=== PATIENT | female | born 1970 | race African-American/Black ===

== ENCOUNTER → 2016-09-02 | Outpatient (CLI) | payer OTHER ==
--- NOTE | 2016-09-03 08:33 | MM ---
Reason for exam: screening (asymptomatic). Last mammogram was performed 1 year and 1 month ago. History: Family history of breast cancer in mother at age 40. Physical Findings: A clinical breast exam by your physician is recommended on an annual basis and results should be correlated with mammographic findings. MG Screening Mammo w CAD Bilateral CC and MLO view(s) were taken. Prior study comparison: August 15, 2015, bilateral MG screening mammo w CAD. July 13, 2014, bilateral MG screening mammo w CAD. July 12, 2013, bilateral digital screening mammo w/CAD. The breast tissue is heterogeneously dense. This may lower the sensitivity of mammography. Finding: There are typically benign calcifications in the left breast. There is no discrete abnormality. ASSESSMENT: Benign, BI-RAD 2 RECOMMENDATION: Routine screening mammogram of both breasts in 1 year.
== END | disposition home or self-care (01) ==
LOC: RADMAMWWP 14:27
PROVIDERS: ATTEND Family Medicine
DX: Z12.31 Encounter for screening mammogram for malignant neoplasm of breast (principal)

== ENCOUNTER → 2016-09-02 | Outpatient (CLI) | payer OTHER ==
--- NOTE | 2016-09-02 16:05 | US ---
EXAMINATION TYPE: US thyroid st tissue head/neck DATE OF EXAM: 09/02/2016 COMPARISON: Thyroid ultrasound July 24, 2015 CLINICAL HISTORY: E04.1 Thyroid Nodule. Follow up exam GLAND SIZE: Right Lobe: 5.4 x 1.7 x 1.7 cm Overall Parenchyma: homogenous Left Lobe: 5.5 x 1.8 x 2.4 cm Overall Parenchyma: heterogeneous Isthmus Thickness: 0.7 cm NODULES RIGHT: # of nodules measured on right: 0 LEFT: # of nodules measured on left: 3 1. 1.8 X 1.9 x 1.9 cm isoechoic solid nodule at the mid pole with poorly defined margins. This nod ule is wider than tall and shows intranodular vascularity. Prior size: 1.6 x 1.3 x 1.6cm 2. 1.1 X 0.8 x 0.7 cm hypoechoic mixed nodule at the lower pole with well-defined margins. This nod ule is wider than tall and shows no intranodular vascularity. Prior size: 1.0 x 0.8 x 1.1cm 3. 0.8 X 0.7 x 0.8 cm hypoechoic cystic nodule at the lower pole with well-defined margins. This no dule is taller than wide and shows no intranodular vascularity. Prior size: 1.0 x 0.8 x 0.8cm ISTHMUS: # of nodules measured in the isthmus: 1 1. 1.5 X 1.2 x 1.0 cm hypoechoic solid nodule at left isthmus. This nodule is wider than tall and shows intranodular vascularity. Prior size: 1.6 x 0.8 x 1.2cm Bilateral neck scanned, no evidence of lymphadenopathy. Thyroid gland is slightly prominent in size and fairly homogeneous in appearance. Scattered nodules l eft thyroid lobe and isthmus are felt stable. No new nodules are clearly seen. IMPRESSION: Overall stable findings, stable slightly enlarged thyroid gland with left-sided nodules and dominant left-sided isthmus nodule. No new greater than 1 cm solid or cystic nodules are seen.
== END | disposition home or self-care (01) ==
LOC: RADUSWWP 14:23
PROVIDERS: ATTEND Otolaryngology
DX: E04.1 Nontoxic single thyroid nodule (principal)
CPT/HCPCS: 76536

== ENCOUNTER → 2016-09-22 | Outpatient (CLI) | payer OTHER ==
[2016-09-22 12:04] LABS: Basophils % (A) 0 %; CH 27.4; CHCM 31.1; Eosinophils # (A) 0.1 k/uL (0-0.7); Eosinophils % (A) 2 %; HCT 42.7 % (34.0-46.0); HGB 13.3 gm/dL (11.4-16.0); Hypochromasia Slight; Luc # (Auto) 0.24; Luc % (Auto) 3; Lymphocytes # (A) 1.9 k/uL (1.0-4.8); Lymphocytes % (A) 25 %; MCH 27.5 pg (25.0-35.0); MCHC 31.1 g/dL (31.0-37.0); MCV 88.4 fL (80.0-100.0); Mean Platelet Volume 7.4; Monocytes # (A) 0.4 k/uL (0-1.0); Monocytes % (A) 5 %; Neutrophils # (A) 4.9 k/uL (1.3-7.7); Neutrophils % (A) 64 %; RBC 4.83 m/uL (3.80-5.40); RDW 13.4 % (11.5-15.5); WBC 7.6 k/uL (3.8-10.6); WBC (Perox) 7.69
[2016-09-22 12:19] LABS: Anion Gap 9 mmol/L; Blood Urea Nitrogen 11 mg/dL (7-17); Calcium 9.7 mg/dL (8.4-10.2); Carbon Dioxide 20 mmol/L (22-30); Chloride 110 mmol/L (98-107); Glucose 130 mg/dL (74-99); Non-African American GFR(MDRD) >60 (>60 ml/min/1.73 sqM); Potassium 4.6 mmol/L (3.5-5.1); Sodium 139 mmol/L (137-145)
== END | disposition home or self-care (01) ==
LOC: LABWHC1 11:27
PROVIDERS: ATTEND Urology
DX: Z01.812 Encounter for preprocedural laboratory examination (principal); E11.9 Type 2 diabetes mellitus without complications; R35.0 Frequency of micturition; N39.3 Stress incontinence (female) (male)
CPT/HCPCS: 80048; 85025; 87086

== ENCOUNTER 2016-09-30 06:03 | Observation (INO) | payer OTHER ==
[2016-09-23 09:54] VITALS: BMI 44.4
--- NOTE | 2016-09-29 16:26 | HP ---
DATE OF ADMISSION: REASON FOR ADMISSION: Surgery tomorrow at [facility]. This is a 46-year-old female 1, para one who presents with a complaint of urinary issues. The patient was referred from Dr. Foster for evaluation regarding cystocele. Upon evaluation, the patient was noted to have a slightly enlarged fibroid uterus, normal ovaries bilaterally. She did indeed have a clinical cystocele. Discussion ensued regarding the value of vaginal hysterectomy at the time of cystocele repair. The patient has minimal amount of uterine prolapse. Ultrasound has recently been performed to evaluate uterine dimensions, they are at 7.8 x 5.55 x 3.95 cm, with normal ovaries noted sonographically. There are small uterine fibroids noted, largest measuring 9 mm. After thorough consultation of risks and benefits, patient is electing to proceed with vaginal hysterectomy at the time of cystocele repair and transvaginal tape. Review of systems is otherwise negative. PAST MEDICAL HISTORY: Significant for carpal tunnel syndrome. PAST SURGICAL HISTORY: Cholecystectomy 1999, excision of benign lipoma 2012. CURRENT MEDICATIONS: 1. Omeprazole 20 mg pills once daily. 2. Vicodin 5/300 as needed for pain. 3. Ibuprofen 800 mg oral tablets as needed for pain. ALLERGIES INCLUDE BENADRYL AND TUSSIONEX. FAMILY HISTORY: Significant for her mother having breast cancer, a maternal aunt with heart disease. Reproductive history is significant for one vaginal delivery of a 7-pound, 2-ounce, female infant in 1998. SOCIAL HISTORY: Caffeine use daily, patient has never been a tobacco smoker, she is single. She denies alcohol or drug use. On exam, this is a pleasant female, 5 feet ( ) inches, 267 pounds, BMI 44, blood pressure 124/84. General physical exam is negative. HEENT exam reveals no thyromegaly, good dentition, good range of motion in the neck. No obvious cervical lymphadenopathy. Breasts are bilaterally pendulous, equal and bilaterally symmetric, no axillary adenopathy, skin lesions, lymphadenopathy, or discernible lesions or masses. ABDOMEN: Moderately obese, no hepatosplenomegaly. There is no CVA tenderness. The extremities reveal good range of motion, good peripheral pulses. EXTERNAL GENITALIA: Well estrogenized. Cervix is multiparous with a small nabothian cyst noted. The uterus is anteverted, anteflexed, there is minimal to moderate amount of uterine prolapse, uterus is slightly bulky and anterior to position. Adnexa are negative bilaterally. Rectal exam reveals Fit, negative stool. There is a grade 2 to 3 cystocele noted on examination, no obvious rectocele. IMPRESSION: Increasingly symptomatic stress urinary incontinence, accompanied by a grade 2 to 3 cystocele and minimal to moderate uterine prolapse. Patient has a small fibroid uterus, and after thorough consultation, would like vaginal hysterectomy at the same time as cystocele repair and transvaginal tape. PLAN: We will therefore proceed with vaginal hysterectomy, repair of cystocele, and tape placement per Dr. Foster. The patient has been advised thoroughly of the risks, benefits, and alternatives of this plan. We have reviewed the risks of surgery to include, but not be exclusive of bleeding, infection, perforation or damage to bowel, bladder, ureters, or indeed any pelvic or abdominal organs. ACOG pamphlet on this procedure has been given to the patient and thoroughly reviewed. I believe she understands these risks and benefits with no further question. Again, we have reviewed the risks of anesthesia to include aspiration, nerve damage or even .
[~2016-09-30 06:03] MED LIST: DEXAMETHASONE SOD PHOSPHATE 10 MG/ML 1 ML VIAL IV ONE; HYDROmorphone 1 MG/ML 1 ML SYRINGE IVP PRN; MIDAZOLAM 2 MG/2 ML VIAL IV PRN; ONDANSETRON 4 MG/2 ML VIAL IVP ONE; SCOPOLAMINE 1.5MG/72HR PATCH TRANSDERM ONE; ceFAZolin 2 GM in SODIUM CHLORIDE 0.9% 100 ML IVPB ONE
[2016-09-30 06:31] LABS: Glucose,Whole Blood 115 mg/dL (75-99)
[2016-09-30] MEDS ORDERED: LIDOCAINE 1% 20 ML VIAL (10MG/ML) FOR IV START INTRADERMA ONE ×2 (06:35)
[2016-09-30] MEDS: LACTATED RINGERS 1,000 ML IV SCH ×2 (06:35→21:26)
[2016-09-30] MEDS ORDERED: GENTAMICIN 120 MG in SODIUM CHLORIDE 0.9% 100 ML IVPB ONE (07:00)
[2016-09-30] MEDS ORDERED: MORPHINE SULFATE (PF) 0.3 MG/0.3 ML SYR ONE (07:28)
[2016-09-30] MEDS ORDERED: fentaNYL (PF) 50 MCG/ML 2 ML AMP ONE (07:28)
[2016-09-30] MEDS ORDERED: MIDAZOLAM 2 MG/2 ML VIAL ONE (07:28)
[2016-09-30] MEDS ORDERED: PROPOFOL 10 MG/ML 20 ML VIAL IV ONE (07:28)
[2016-09-30] MEDS ORDERED: VASOPRESSIN 20 UNIT/ML 1 ML VIAL SQ ONE (07:53)
[2016-09-30] MEDS ORDERED: GENTAMICIN 80 MG in SODIUM CHLORIDE 0.9% 500 ML IRRIGATION ONE (07:56)
[2016-09-30] MEDS ORDERED: BACITRACIN 500 UNIT/GM OINT 28.4 GM TUBE TOPICAL ONE (07:57)
[2016-09-30] MEDS ORDERED: LACTATED RINGERS 1,000 ML IV ONE (08:43)
[2016-09-30] MEDS ORDERED: METOCLOPRAMIDE 5 MG/ML 2 ML VIAL IVP PRN (08:55)
[2016-09-30] MEDS ORDERED: ZOLPIDEM 5 MG TAB PO PRN (08:55)
[2016-09-30] MEDS ORDERED: IBUPROFEN 600 MG TAB PO PRN (08:55)
--- NOTE | 2016-09-30 08:55 | P.OP ---
Date of Procedure: 09/30/16 Preoperative Diagnosis: Mixed urinary incontinence, symptomatic cystocele, uterine prolapse. Postoperative Diagnosis: Normal-appearing ovaries bilaterally Procedure(s) Performed: Implants: Vaginal hysterectomy, cystocele repair, transvaginal tape, cystoscopy Surgeon: Deanna Velázquez Service Station Helper #1: Luda Torres Estimated Blood Loss (ml): 50 IV fluids (ml): 700 Urine output (ml): 120 Pathology: other (Cervix and uterus) Condition: stable Disposition: PACU Indications for Procedure: Operative Findings: Description of Procedure: Patient is brought to the operating suite where a spinal with Duramorph is placed. She is positioned in the dorsal lithotomy position. The cervix vagina perineum and periurethral areas are all prepped and draped in usual sterile fashion. Antibiotics are given. The appropriate timeout is performed to assure proper patient and procedural identification. Examination under anesthesia reveals a mobile uterus slightly bulky, negative adnexa bilaterally. The bladder is drained for possibly 100 mL of clear yellow urine. Weighted speculum was placed into the vagina. The anterior lip of the cervix is grasped with a double-tooth tenaculum. The cervix was injected circumferentially with a dilute Pitressin solution. A comanche blade scalpel was used to incise the mucosa circumferentially with V positioning posteriorly. A sponge rolled finger is used to sweep the mucosa from the underlying fascial plane. Peritoneum is entered at 6:00, and suture tied with 2-0 Vicryl. The large billed speculum is then placed. Care is taken at all times to keep the mucosa swept well from the operative field to avoid bladder and/or ureteral injury. The right uterosacral cardinal ligament is identified, clamped, suture tied and held laterally. The same procedure is carried out on the contralateral side. Vaginal mucosa is swept well away, and the uterine vessels are identified, clamped cut and suture ligated. 2 additional pedicles are taken superior to the vessels. The anterior peritoneum was entered. The uterus is then "walked out" posteriorly, the remaining pedicles are clamped with Destiny clamps and the specimen is removed and sent to pathology for evaluation. The pedicles are tied with a 0 Vicryl suture, flashed , and retied for excellent hemostasis. Inspection of all pedicles at this time reveals them to be hemostatically intact. Sponge stick is used to visualize the ovaries, and they appear normal and therefore are left in situ per the patient's wishes. The speculum is then replaced, and the peritoneum is brought around in a pursestring fashion to close the peritoneal cavity with the previously placed 2- 0 Vicryl suture. Uterosacral cardinal ligaments are then brought across contralaterally to incorporate the opposite pedicle as well as vaginal mucosa. An additional stitch of 0 Vicryl is used in a [id number] fashion posterior to this. Dr. Lanza then joined us our procedure. The vaginal mucosa is injected with dilute Pitressin solution. Metzenbaum scissors are used to underlying the mucosa in the midline and the mucosa is open to approximately 2 cm inferior to the urethra. The mucosa is dissected from the underlying fascial plane. Dr. Lanza then performed his procedure, along with cystoscopy which verifies good ureteral flow bilaterally and no bladder injury. Please see separate dictation for details. The vaginal mucosa is trimmed with Metzenbaum scissors. 2-0 Vicryl is used in a running locking fashion to close the anterior vaginal wall for excellent reapproximation and hemostasis. The vagina is packed with a 1 inch iodophor gauze. Cordova is noted to be draining clear urine. All sponge needle and enhancement counts are correct at the end of this procedure. Total estimated blood loss 50 mL, fluid replacement 700 mL, urine 1 20 mL's. Patient is brought back to recovery room in very good condition with stable vital signs including a blood pressure 150/78, pulse 93, 96% O2 saturation.
--- NOTE | 2016-09-30 08:58 | P.OP ---
Date of Procedure: 09/30/16 Preoperative Diagnosis: Stress Urinary Incontinence Postoperative Diagnosis: Same Procedure(s) Performed: Obtryx Mid-Urethral Sling Implants: Anesthesia: spinal Surgeon: Ned Foster Aquatic Physiotherapist #1: Deanna Velázquez Estimated Blood Loss (ml): 50 IV fluids (ml): 700 Pathology: none sent Condition: stable Disposition: PACU Indications for Procedure: 46 year old female with a history of stress incontinence. She does have some urgency and frequency, but this started after she began drinking more water. She was recently diagnosed with DM. She has a grade 2 cystocele and stress incontinence on exam. UDS are consistent Type II PINA. We discussed a TOT sling ( Obtryx) vs. a suprapubic sling (Lynx). The latter is more likely to treat her incontinence, but carries with it a higher incidence of postoperative retention and irritative voiding symptoms. She prefers the former, as she hopes to avoid these problems and would be satisfied if her incontinence is considerably improved yet not resolved. This will be performed at the time of her TVH with cystocele repair, to be performed by Dr. Velázquez. Operative Findings: Cystocele Description of Procedure: I entered the operating room as Dr. Velázquez was completing the TVH. The patient was positioned in the dorsolithotomy position, with her legs supported in Marino stirrups. Her condition was stable. After completing the TVH, Dr. Velázquez dissected out the cystocele. Metzenbaum scissors were used to dissect laterally within the submucosal plane, to the inferior pubic ramus. The scalpel was used to make bilateral groin incisions at the level of the clitoris. Subcutaneous tissues were spread with a hemostat. Each of the helical needles were passed through the respective groin incision, and turned such that the needle tip wrapped around the pubis. The needle tips were guided digitally into the vaginal incision. The Obtryx graft, which had been previously soaked in antibiotic solution, was secured to the needle tips in the standard fashion. The needles were then withdrawn, and the position of the graft was adjusted such that it overlie the mid urethra, as desired. With a hemostat placed between the graft and the urethra to prevent tension of the graft over the urethra, the plastic sheath was removed from the ends of the graft. The ends of the graft were cut beneath the skin incisions, and these incisions were closed using 4-0 Vicryl suture in a subcuticular fashion. Cystoscopy was performed. The 30 lens was used to introduce the 19-[place] Storz cystoscopic sheath through the urethra and into the bladder under direct vision. The urethra and bladder were unremarkable. There was no evidence of perforation. Both ureteral orifices were of normal anatomic location and configuration, and clear urine effluxed from both. No tumors or foreign bodies were seen. The cystoscope was removed, and the Cordova catheter was replaced into the bladder. Following placement of the sling, it was evident that the cystocele had been reduced completely. Hemostasis was excellent. Dr. Velázquez excised the redundant vaginal mucosa and closed the vaginal incision using Vicryl suture in a running fashion. Vaginal packing was placed. All sponge and needle counts were correct. The patient tolerated the procedure well was taken to the recovery room in stable condition.
[2016-09-30] MEDS ORDERED: NALOXONE 0.4 MG/ML 1 ML VIAL IV PRN (09:04)
[2016-09-30] MEDS ORDERED: MORPHINE SULFATE 4 MG/ML SYRINGE IVP PRN (09:04)
[2016-09-30] MEDS ORDERED: diphenhydrAMINE 50 MG/ML 1 ML VIAL IVP PRN (09:04)
[2016-09-30] MEDS ORDERED: ONDANSETRON 4 MG/2 ML VIAL IVP PRN (09:04)
[2016-09-30 09:17] LABS: Glucose,Whole Blood 132 mg/dL (75-99)
[2016-09-30] MEDS: NALBUPHINE 10 MG/ML AMPUL IV PRN ×3 (11:18→21:18)
[2016-09-30] MEDS: ceFAZolin 1,000 MG in DEXTROSE/WATER 1 50ML.BAG IVPB SCH (16:07)
[2016-09-30] MEDS ORDERED: GENTAMICIN 80 MG in SODIUM CHLORIDE 0.9% 100 ML IVPB ONE (19:00)
[2016-09-30] MEDS: SENNOSIDES-DOCUSATE SODIUM 1 EACH TAB PO SCH (21:17)
[2016-09-30] MEDS: KETOROLAC 30 MG/ML 1 ML VIAL IVP PRN (21:20)
[2016-10-01] MEDS: NALBUPHINE 10 MG/ML AMPUL IV PRN ×3 (00:45→08:35)
[2016-10-01] MEDS: ceFAZolin 1,000 MG in DEXTROSE/WATER 1 50ML.BAG IVPB SCH ×3 (00:45→19:59)
[2016-10-01] MEDS: KETOROLAC 30 MG/ML 1 ML VIAL IVP PRN ×2 (04:16→13:10)
--- NOTE | 2016-10-01 07:17 | P.DS ---
Providers Date of admission: 10/01/16 05:28 Expected date of discharge: 10/01/16 Attending physician: Deanna Velázquez Primary care physician: Doreen Brooks Rakan [facility] Hospital Course: This is a 46-year-old female 1 para 1 who presented with symptomatic urinary incontinence and grade 2-3 cystocele. She elected to proceed with vaginal hysterectomy as well as cystocele repair, and bladder suspension per Dr. Lanza. Please see our dictated history and physical for details. Patient underwent vaginal hysterectomy, cystocele repair, and bladder suspension yesterday. She did well intraoperatively. The ovaries appeared normal to inspection and therefore were left in situ per her wishes. There was a small rectocele noted at surgery, this was asymptomatic and left per our previous discussion. Patient is still sexually active. Please see our dictated operative notes for details. This morning the patient is doing well. The Cordova catheter has been removed. The vaginal packing is removed. There is scant vaginal discharge noted. Extremities are negative for edema. Chest is clear in all alston. Abdomen is soft, nontender, active bowel sounds. There is no CVA tenderness. Patient is tolerating regular food at this time. She does complain of itching, likely secondary to the Duramorph spinal administered yesterday. The itching is well cared for with Nubain. Bladder training has commenced this morning. The plan is for discharge home later today pending successful bladder training. Patient will follow-up in the office with me in 2 weeks. I have reminded her no intercourse, tampons or douching. She will call with any fevers shakes or chills, foul smelling or bloody vaginal drainage, with any pain not alleviated by ibuprofen products, or indeed with any concerns. Patient will follow-up with Dr. Lanza in his office as per his recommendations. No driving for 2 weeks, no heavy lifting, no swimming. Pathology report on the uterine specimen at this time is pending. Patient Condition at Discharge: Good Plan - Discharge Summary New Discharge Prescriptions: No Action Ibuprofen 800 mg PO TID PRN PRN Reason: Pain HYDROcodone/APAP 5-325MG [[place] 5-325] 1 tab PO DAILY PRN PRN Reason: Pain Discharge Medication List HYDROcodone/APAP 5-325MG [[place] 5-325] 1 tab PO DAILY PRN 09/23/16 [History] Ibuprofen 800 mg PO TID PRN 09/23/16 [History] Follow up Appointment(s)/Referral(s): Deanna Velázquez MD [STAFF PHYSICIAN] - 2 Weeks Discharge Disposition: HOME SELF-CARE
[2016-10-01] MEDS: Acetaminophen-Codeine 300-30mg TAB PO PRN ×2 (08:48→16:46)
[2016-10-01] MEDS: SENNOSIDES-DOCUSATE SODIUM 1 EACH TAB PO SCH (08:49)
--- NOTE | 2016-10-01 12:35 | P.PN ---
Progress Note - Text Mrs. Alvarez is feeling well. Her Cordova catheter was removed this morning, along with vaginal packing. She has voided once without difficulty, and was verified to have emptied her bladder completely. She is afebrile with stable vital signs. Her incisions are intact. She will be discharged home with follow-up in one week.
[2016-10-01 13:04] VITALS: BP 129/77; PULSE 72; RESP 20; TEMP 97.4
== END 2016-10-01 17:00 | disposition home or self-care (01) ==
LOC: OR 06:03 → 6PED 08:59 → OR 10-01 05:28
PROVIDERS: ADMIT Obstetrics & Gynecology; ATTEND Obstetrics & Gynecology
DX: N39.46 Mixed incontinence (principal); N81.4 Uterovaginal prolapse, unspecified; N32.81 Overactive bladder; D25.9 Leiomyoma of uterus, unspecified; M54.5 Low back pain; E11.9 Type 2 diabetes mellitus without complications; M79.7 Fibromyalgia; K21.9 Gastro-esophageal reflux disease without esophagitis; K58.9 Irritable bowel syndrome, unspecified; G56.00 Carpal tunnel syndrome, unspecified upper limb; J32.9 Chronic sinusitis, unspecified; Z79.899 Other long term (current) drug therapy; Z88.8 Allergy status to other drugs, medicaments and biological substances; Z80.3 Family history of malignant neoplasm of breast; Z83.3 Family history of diabetes mellitus; Z82.49 Family history of ischemic heart disease and other diseases of the circulatory system; Z90.49 Acquired absence of other specified parts of digestive tract
CPT/HCPCS: 57288; 58260; 57240; 81025; 86900; 86901; 86850; 88307; G0378; C1771; J2250; J1580 ×2; J1100; J2300 ×2; J0690 ×3; J2405; J2274; J3010; J1885 ×2; J2704

== ENCOUNTER → 2017-07-27 | Outpatient (CLI) | payer OTHER ==
[2017-07-27 14:36] LABS: T4, Free (Free Thyroxine) 2.16 ng/dL (0.78-2.19)
== END | disposition home or self-care (01) ==
LOC: LABWHC1 13:08
PROVIDERS: ATTEND Internal Medicine Endocrinology, Diabetes & Metabolism
DX: E05.90 Thyrotoxicosis, unspecified without thyrotoxic crisis or storm (principal)
CPT/HCPCS: 36415; 84439; 84481

== ENCOUNTER → 2017-09-03 | Outpatient (CLI) | payer OTHER ==
--- NOTE | 2017-09-04 07:51 | US ---
EXAMINATION TYPE: US thyroid st tissue head/neck DATE OF EXAM: 09/03/2017 COMPARISON: Thyroid ultrasound 1 year ago. CLINICAL HISTORY: E04.2 Multinodular Goiter, E05.9 Hyperthyroidism. GLAND SIZE: Right Lobe: 5.3 x 2.1 x 2.1 cm Overall Parenchyma: heterogenous Left Lobe: 5.5 x 2.4 x 3.0 cm Overall Parenchyma: heterogeneous Isthmus Thickness: 1.2 cm NODULES RIGHT: # of nodules measured on right: 0 LEFT: # of nodules measured on left: 3 1. 1.9 X 1.9 x 1.8 cm isoechoic solid nodule at the mid pole with poorly defined margins. This nod ule is taller than wide and shows intranodular vascularity. Prior size: 1.9 x 1.9 x 1.8 cm 2. 1.1 x 0.9 x 0.8 cm echogenic solid nodule at the lower pole with well-defined margins. This nodul e is wider than tall and shows intranodular vascularity. Prior size: 1.1 X 0.8 x 0.7 cm 3. 0.8 x 0.7 x 0.8 cm anechoic cystic nodule at the lower pole with well-defined margins. This nodul e is wider than tall and shows no intranodular vascularity. Prior size: 0.8 x 0.7 x 0.8 cm ISTHMUS: # of nodules measured in the isthmus: 1 1. 1.5 X 1.2 x 1.2 cm isoechoic solid nodule at the left pole with well-defined margins. This nodu le is wider than tall and shows intranodular vascularity. Prior size: 1.5 x 1.2 x 1.0 cm Bilateral neck scanned, no evidence of lymphadenopathy. There is persistent heterogeneous slightly enlarged thyroid gland with stable nodules redemonstrated bilaterally. IMPRESSION: Overall stable findings correlate with multilevel nodular goiter. No significant interval change.
== END | disposition home or self-care (01) ==
LOC: RADUSWWP 16:06
PROVIDERS: ATTEND Internal Medicine Endocrinology, Diabetes & Metabolism
DX: E04.2 Nontoxic multinodular goiter (principal); E05.90 Thyrotoxicosis, unspecified without thyrotoxic crisis or storm
CPT/HCPCS: 76536

== ENCOUNTER → 2017-09-04 | Outpatient (CLI) | payer OTHER ==
--- NOTE | 2017-09-07 10:15 | MM ---
Reason for exam: screening (asymptomatic). Last mammogram was performed 1 year ago. History: Family history of breast cancer in mother at age 40. Physical Findings: A clinical breast exam by your physician is recommended on an annual basis and results should be correlated with mammographic findings. MG Screening Mammo w CAD Bilateral CC and MLO view(s) were taken. Prior study comparison: September 02, 2016, bilateral MG screening mammo w CAD. August 15, 2015, bilateral MG screening mammo w CAD. The breast tissue is heterogeneously dense. This may lower the sensitivity of mammography. No suspicious abnormality. No significant changes when compared with prior studies. ASSESSMENT: Negative, BI-RAD 1 RECOMMENDATION: Routine screening mammogram of both breasts in 1 year.
== END | disposition home or self-care (01) ==
LOC: RADMAMWWP 06:52
PROVIDERS: ATTEND Family Medicine
DX: Z12.31 Encounter for screening mammogram for malignant neoplasm of breast (principal)
CPT/HCPCS: 77067

== ENCOUNTER → 2017-10-23 | Outpatient (CLI) | payer OTHER ==
[2017-10-23 11:47] LABS: T4, Free (Free Thyroxine) 2.96 ng/dL (0.78-2.19)
== END | disposition home or self-care (01) ==
LOC: LABWHC1 10:32
PROVIDERS: ATTEND Internal Medicine Endocrinology, Diabetes & Metabolism
DX: E05.90 Thyrotoxicosis, unspecified without thyrotoxic crisis or storm (principal)
CPT/HCPCS: 36415; 84439; 84481

== ENCOUNTER → 2018-01-25 | Outpatient (CLI) | payer OTHER | END | disposition home or self-care (01) | LOC: LABWHC1 17:13 | PROVIDERS: ATTEND Nurse Practitioner | DX: E05.90 Thyrotoxicosis, unspecified without thyrotoxic crisis or storm (principal) | CPT/HCPCS: 36415; 84439; 84443 ==

== ENCOUNTER 2018-04-01 21:03 | Emergency (ER) | payer OTHER ==
[2018-04-01 21:09] VITALS: TEMP 98.6
--- NOTE | 2018-04-01 21:59 | ED ---
Chest Pain HPI - General Chief Complaint: Chest Pain Stated Complaint: Cough/chest pain Time Seen by Provider: 04/01/18 21:22 Source: patient, family Mode of arrival: ambulatory Limitations: no limitations - History of Present Illness Initial Comments: This patient is a 47-year-old woman who presents to be evaluated for left chest pain. Patient states that she was in her usual state of health until 5-6 days ago when she started having a cough. She states it felt like she cannot bring anything up. For the past approximately 3-4 days she has had some left-sided chest pain. She describes it as aching, moderate intensity, constant, is worse with coughing or with movement. The patient did not resolve she felt she should be seen here. She has not had dyspnea. No nausea or vomiting. No diaphoresis, palpitations, lightheadedness or syncope. MD Complaint: chest pain Onset/Timin -: days(s) Onset: during rest Pain Location: left chest Pain Radiation: none Severity: moderate Quality: aching Consistency: constant Improves With: nothing Worsens With: movement Other Symptoms: cough Treatments Prior to Arrival: none - Related Data Home Medications Medication Instructions Recorded Confirmed HYDROcodone/APAP 5-325MG [[place] 1 tab PO DAILY PRN 09/23/16 04/01/18 5-325] Ibuprofen 800 mg PO TID PRN 09/23/16 04/01/18 Methimazole 7.5 mg PO DAILY 04/01/18 04/01/18 Propranolol [Inderal] 10 mg PO TID 04/01/18 04/01/18 Allergies Allergy/AdvReac Type Severity Reaction Status Date / Time diphenhydramine Allergy Unknown Itching Verified 04/01/18 22:42 [From Benadryl] WITH HIGH DOSES Review of Systems ROS Statement: Those systems with pertinent positive or pertinent negative responses have been documented in the HPI. ROS Other: All systems not noted in ROS Statement are negative. Constitutional: Denies: fever, chills, weakness Respiratory: Reports: cough. Denies: dyspnea, wheezes Cardiovascular: Reports: chest pain. Denies: palpitations, edema, syncope Gastrointestinal: Denies: abdominal pain, nausea, vomiting Genitourinary: Denies: dysuria, hematuria Musculoskeletal: Denies: back pain Skin: Denies: rash Neurological: Denies: headache, weakness, numbness EKG Findings - EKG Results: EKG: interpreted by TRESSA FONSECA, sinus rhythm (Rate 82 bpm), normal axis, normal QRS, normal ST/T, no acute changes Past Medical History Past Medical History: Diabetes Mellitus, Fibromyalgia, GERD/Reflux, Musculoskeletal Disorder, Osteoarthritis (OA) Additional Past Medical History / Comment(s): HERNIATED DISCS, IBS., VARICOSE VEIN., STATES NEW DIAGNOSIS OF DIABETES- NO MEDS, TRIED DIET CLASSES AT [facility]- BUT STATES NOT HELPFUL., STRESS INCONTINENCE. History of Any Multi-Drug Resistant Organisms: None Reported Past Surgical History: Cholecystectomy Additional Past Surgical History / Comment(s): LIPOMA Additional Past Anesthesia/Blood Transfusion Reaction / Comment(s): RX GIVEN IV FOR COLONOSCOPY FELT LIKE HER ARM WAS GOING TO "BLOW UP" Past Psychological History: No Psychological Hx Reported Smoking Status: Never smoker Past Alcohol Use History: None Reported Past Drug Use History: None Reported - Past Family History Mother Family Medical History: Cancer Additional Family Medical History / Comment(s): BREAST CANCER General Exam Limitations: no limitations General appearance: alert, in no apparent distress, obese Head exam: Present: atraumatic, normocephalic Eye exam: Present: normal appearance. Absent: scleral icterus, conjunctival injection ENT exam: Present: normal oropharynx Neck exam: Present: normal inspection Respiratory exam: Present: normal lung sounds bilaterally, chest wall tenderness. Absent: respiratory distress, wheezes, rales, rhonchi, stridor, accessory muscle use, decreased breath sounds Cardiovascular Exam: Present: regular rate, normal rhythm, normal heart sounds. Absent: systolic murmur, diastolic murmur, rubs, gallop GI/Abdominal exam: Present: soft. Absent: distended, tenderness, guarding, rebound, rigid, mass Extremities exam: Present: normal inspection, normal capillary refill. Absent: pedal edema, calf tenderness Back exam: Present: normal inspection. Absent: CVA tenderness (R), CVA tenderness (L) Neurological exam: Present: alert Skin exam: Present: warm, dry, intact, normal color. Absent: rash Course Vital Signs 04/01/18 04/01/18 04/01/18 21:05 22:05 22:30 Temperature 98.6 F Pulse Rate 83 70 65 Respiratory 20 18 14 Rate Blood Pressure 200/97 198/107 151/66 O2 Sat by Pulse 99 98 100 Oximetry 04/01/18 23:30 Temperature Pulse Rate 72 Respiratory 18 Rate Blood Pressure 163/92 O2 Sat by Pulse 99 Oximetry Disposition Clinical Impression: Chest wall syndrome Disposition: HOME SELF-CARE Condition: Good Instructions: Chest Pain (ED) Additional Instructions: Follow-up with your physician to have the potassium rechecked in 2-3 days. Is patient prescribed a controlled substance at d/c from ED?: No Referrals: Doreen Bledsoe DO [Primary Care Provider] - 1-2 days
[2018-04-01 22:30] LABS: Basophils # (A) 0.1 k/uL (0-0.2); Basophils % (A) 0 %; Eosinophils # (A) 0.3 k/uL (0-0.7); Eosinophils % (A) 3 %; HCT 44.4 % (34.0-46.0); HGB 14.3 gm/dL (11.4-16.0); Lymphocytes # (A) 4.9 k/uL (1.0-4.8); Lymphocytes % (A) 41 %; MCH 26.9 pg (25.0-35.0); MCHC 32.2 g/dL (31.0-37.0); MCV 83.6 fL (80.0-100.0); Mean Platelet Volume 7.7; Monocytes # (A) 0.5 k/uL (0-1.0); Monocytes % (A) 4 %; Neutrophils # (A) 5.8 k/uL (1.3-7.7); Neutrophils % (A) 48 %; Platelet Count 312 k/uL (150-450); RBC 5.31 m/uL (3.80-5.40); RDW 14.6 % (11.5-15.5)
[2018-04-01 22:36] LABS: Creatine Kinase 75 U/L (30-135)
[2018-04-01 22:39] LABS: ALT 25 U/L (9-52); AST 16 U/L (14-36); Albumin 4.1 g/dL (3.5-5.0); Alkaline Phosphatase 102 U/L (38-126); Anion Gap 9 mmol/L; Blood Urea Nitrogen 14 mg/dL (7-17); Calcium 9.6 mg/dL (8.4-10.2); Carbon Dioxide 24 mmol/L (22-30); Chloride 104 mmol/L (98-107); Glucose 113 mg/dL (74-99); Magnesium 1.9 mg/dL (1.6-2.3); Sodium 137 mmol/L (137-145); Total Bilirubin 0.4 mg/dL (0.2-1.3); Total Protein 8.1 g/dL (6.3-8.2)
[2018-04-01 22:48] LABS: Potassium 5.4 mmol/L (3.5-5.1)
[2018-04-01 22:50] LABS: Creatine Kinase MB 0.3 ng/mL (0.0-2.4); Troponin I <0.012 ng/mL (0.000-0.034)
[2018-04-01 23:10] LABS: D-Dimer 0.42 mg/L FEU (<0.60); INR 0.9 (<1.2); Partial Thromboplastin Time 23.6 sec (22.0-30.0)
--- NOTE | 2018-04-01 23:14 | XR ---
EXAMINATION TYPE: XR chest 2V DATE OF EXAM: 04/01/2018 COMPARISON: NONE HISTORY: Chest pain TECHNIQUE: Frontal and lateral views of the chest are obtained. FINDINGS: Heart and mediastinum are normal. Lungs are clear. Diaphragm is normal. Bony thorax appear s normal. IMPRESSION: Normal chest.
[2018-04-01 23:38] VITALS: BP 163/92
[2018-04-01] MEDS ORDERED: KETOROLAC 30 MG/ML 1 ML VIAL IVP STA (23:38)
[2018-04-02 00:05] VITALS: PULSE 81; RESP 16
== END 2018-04-02 00:12 | disposition home or self-care (01) ==
LOC: EC 21:03
DX: R07.1 Chest pain on breathing (principal); R05 Cough; E11.9 Type 2 diabetes mellitus without complications; Z88.8 Allergy status to other drugs, medicaments and biological substances; Z79.899 Other long term (current) drug therapy
CPT/HCPCS: 36415; 93005; 85379; 80053; 82550; 82553; 83735; 84484; 85025; 85610; 85730; 71046; 99285; 96374; J1885

== ENCOUNTER → 2018-07-21 | Outpatient (CLI) | payer OTHER ==
--- NOTE | 2018-07-21 16:31 | US ---
EXAMINATION TYPE: US kidneys/renal and bladder DATE OF EXAM: 07/21/2018 COMPARISON: NONE CLINICAL HISTORY: M54.4 Low back pain. Hematuria; diabetic EXAM MEASUREMENTS: Right Kidney: 9.3 x 5.7 x 5.0 x cm Left Kidney: 10.5 x 5.7 x 5.5cm Post Void Residual Volume: bladder appears empty Right Kidney: No hydronephrosis or masses seen Left Kidney: No hydronephrosis or masses seen Bladder: wnl Bilateral Jets seen: yes Normal Post Void Residual: yes There is no evidence for hydronephrosis at this point in time. No nephrolithiasis is seen. No elvia s are identified. The urinary bladder is not greatly distended and is thus suboptimally evaluated. Bilateral ureteral jets are seen. IMPRESSION: No hydronephrosis is evident bilaterally.
== END ==
LOC: RADUSWWP 15:52
PROVIDERS: ATTEND Family Medicine
DX: M54.5 Low back pain (principal)
CPT/HCPCS: 76770

== ENCOUNTER → 2018-09-06 | Outpatient (CLI) | payer OTHER ==
--- NOTE | 2018-09-07 14:38 | MM ---
Reason for exam: screening (asymptomatic). Last mammogram was performed 1 year ago. History: Patient is postmenopausal. Family history of breast cancer in mother at age 40. Physical Findings: A clinical breast exam by your physician is recommended on an annual basis and results should be correlated with mammographic findings. MG Screening Mammo w CAD Bilateral CC and MLO view(s) were taken. XCCL view(s) were taken of the right breast. Prior study comparison: September 04, 2017, bilateral MG screening mammo w CAD. September 02, 2016, bilateral MG screening mammo w CAD. There are scattered fibroglandular densities. No significant changes when compared with prior studies. ASSESSMENT: Benign, BI-RAD 2 RECOMMENDATION: Routine screening mammogram of both breasts in 1 year.
== END | disposition home or self-care (01) ==
LOC: RADMAMWWP 12:40
PROVIDERS: ATTEND Family Medicine
DX: Z12.31 Encounter for screening mammogram for malignant neoplasm of breast (principal)
CPT/HCPCS: 77067

== ENCOUNTER → 2018-11-11 | Outpatient (CLI) | payer OTHER ==
[2018-11-11 14:49] LABS: Basophils % (A) 0 %; Eosinophils # (A) 0.3 k/uL (0-0.7); Eosinophils % (A) 3 %; HCT 42.3 % (34.0-46.0); HGB 13.3 gm/dL (11.4-16.0); Lymphocytes # (A) 2.3 k/uL (1.0-4.8); Lymphocytes % (A) 31 %; MCH 26.8 pg (25.0-35.0); MCHC 31.5 g/dL (31.0-37.0); MCV 85.3 fL (80.0-100.0); Mean Platelet Volume 7.6; Monocytes # (A) 0.3 k/uL (0-1.0); Monocytes % (A) 5 %; Neutrophils # (A) 4.3 k/uL (1.3-7.7); Neutrophils % (A) 58 %; Platelet Count 291 k/uL (150-450); RBC 4.96 m/uL (3.80-5.40); RDW 14.2 % (11.5-15.5); WBC 7.4 k/uL (3.8-10.6)
[2018-11-11 14:57] LABS: ALT 20 U/L (9-52); AST 12 U/L (14-36); African American GFR (CKD) >90 (>60 ml/min/1.73 sqM); Alkaline Phosphatase 77 U/L (38-126); Anion Gap 7 mmol/L; Blood Urea Nitrogen 10 mg/dL (7-17); Calcium 9.2 mg/dL (8.4-10.2); Carbon Dioxide 26 mmol/L (22-30); Chloride 103 mmol/L (98-107); Glucose 96 mg/dL (74-99); Potassium 4.5 mmol/L (3.5-5.1); Sodium 136 mmol/L (137-145); Total Bilirubin 0.5 mg/dL (0.2-1.3); Total Protein 7.7 g/dL (6.3-8.2)
[2018-11-11 15:13] LABS: T4, Free (Free Thyroxine) 1.46 ng/dL (0.78-2.19)
--- NOTE | 2018-11-11 16:31 | XR ---
Right foot HISTORY: Right foot pain 3 views of the right foot Soft tissue swelling is noted laterally. Joint spaces, bone mineralization, alignment are maintained. There is mild degenerative change at the first metatarsophalangeal joint however. Calcification pres ent at the insertion of the Achilles tendon. There is a plantar calcaneal spur. IMPRESSION: Plantar spur, soft tissue swelling.
--- NOTE | 2018-11-11 16:33 | XR ---
Right knee HISTORY: Pain 3 views of the right knee Alignment is maintained. No fracture or dislocation. No evident joint effusion. Mild spurring at the patellofemoral joint. Question some subchondral sclerosis at the posterior patella. Some joint space loss at the patellofemoral joint noted. IMPRESSION: Correlate for chondromalacia patella, osteoarthritis.
[2018-11-12 04:03] LABS: Hemoglobin A1C 6.6 % (4.0-6.0)
== END | disposition home or self-care (01) ==
LOC: RADXRMAIN 13:34
PROVIDERS: ATTEND Family Medicine
DX: M77.31 Calcaneal spur, right foot (principal); M25.561 Pain in right knee; R73.03 Prediabetes; E05.90 Thyrotoxicosis, unspecified without thyrotoxic crisis or storm
CPT/HCPCS: 80053; 83036; 84439; 84443; 85025

== ENCOUNTER → 2019-09-12 | Outpatient (CLI) | payer OTHER ==
--- NOTE | 2019-09-12 11:57 | XR ---
EXAMINATION TYPE: XR chest 2V DATE OF EXAM: 09/12/2019 COMPARISON: 04/01/2018 TECHNIQUE: PA and lateral views submitted. HISTORY: Chest pain FINDINGS: The lungs are clear and there is no pneumothorax, pleural effusion, or focal pneumonia. Heart size normal. No overt failure. Surgical clips right quadrant. Hypertrophic changes of the spine. IMPRESSION: 1. No acute process.
[2019-09-12 14:10] LABS: Basophils % (A) 1 %; Eosinophils # (A) 0.5 k/uL (0-0.7); Eosinophils % (A) 6 %; HCT 42.2 % (34.0-46.0); HGB 13.5 gm/dL (11.4-16.0); Hypochromasia Slight; Lymphocytes # (A) 2.4 k/uL (1.0-4.8); Lymphocytes % (A) 28 %; MCH 27.5 pg (25.0-35.0); MCHC 31.9 g/dL (31.0-37.0); MCV 86.3 fL (80.0-100.0); Mean Platelet Volume 8.4; Monocytes # (A) 0.4 k/uL (0-1.0); Monocytes % (A) 5 %; Neutrophils % (A) 58 %; Platelet Count 316 k/uL (150-450); RBC 4.89 m/uL (3.80-5.40); RDW 14.9 % (11.5-15.5); WBC 8.6 k/uL (3.8-10.6)
[2019-09-12 23:21] LABS: Hemoglobin A1C 7.4 % (4.0-6.0)
[2019-09-13 02:32] LABS: Clam IgE <0.10 kU/L; Scallop IgE <0.10 kU/L; Shrimp IgE <0.10 kU/L; Walnut IgE (Food) <0.10 kU/L
[2019-09-13 02:33] LABS: Peanut IgE <0.10 kU/L; Soybean IgE <0.10 kU/L
[2019-09-13 02:35] LABS: Codfish IgE <0.10 kU/L
[2019-09-13 02:41] LABS: Red Top (Bentgrass) IgE <0.10 kU/L
[2019-09-13 02:42] LABS: Elm IgE <0.10 kU/L; Oak IgE <0.10 kU/L; Ragweed,Common IgE <0.10 kU/L
[2019-09-13 02:43] LABS: Alternaria alternata IgE <0.10 kU/L; Aspergillus fumagatus IgE <0.10 kU/L; Birch IgE <0.10 kU/L
[2019-09-13 02:44] LABS: Cladosporian herbarum IgE <0.10 kU/L; Cockroach IgE <0.10 kU/L
[2019-09-13 02:45] LABS: Cat Epith & Dander IgE 0.69 kU/L; Dermato. farinae IgE 0.85 kU/L; Dog Dander IgE <0.10 kU/L
[2019-09-13 04:32] LABS: Egg White IgE <0.10 kU/L
[2019-09-13 04:33] LABS: Maple (Box Elder) IgE 0.44 kU/L
== END | disposition home or self-care (01) ==
LOC: RADXRMAIN 11:39
PROVIDERS: ATTEND Internal Medicine
DX: R06.02 Shortness of breath (principal); R05 Cough; E11.9 Type 2 diabetes mellitus without complications
CPT/HCPCS: 71046; 82785; 83036; 85025; 86003

== ENCOUNTER → 2020-02-15 | Outpatient (CLI) | payer OTHER ==
[2020-02-15 18:38] LABS: Chol/HDL Ratio 3.26
== END | disposition home or self-care (01) ==
LOC: LABWHC1 09:25
PROVIDERS: ATTEND Internal Medicine Cardiovascular Disease
DX: E78.2 Mixed hyperlipidemia (principal)
CPT/HCPCS: 36415; 80061; 84450; 84460

== ENCOUNTER → 2020-09-27 | Outpatient (CLI) | payer OTHER ==
--- NOTE | 2020-10-01 08:44 | MM ---
Reason for exam: screening (asymptomatic). Last mammogram was performed 2 years and 1 month ago. History: Patient is postmenopausal. Family history of breast cancer in mother at age 40. Physical Findings: A clinical breast exam by your physician is recommended on an annual basis and results should be correlated with mammographic findings. MG Screening Mammo w CAD Bilateral CC and MLO view(s) were taken. Prior study comparison: September 06, 2018, bilateral MG screening mammo w CAD. September 04, 2017, bilateral MG screening mammo w CAD. There are scattered fibroglandular densities. No significant changes when compared with prior studies. ASSESSMENT: Benign, BI-RAD 2 RECOMMENDATION: Routine screening mammogram of both breasts in 1 year.
== END | disposition home or self-care (01) ==
LOC: RADMAMWWP 16:25
PROVIDERS: ATTEND Family Medicine
DX: Z12.31 Encounter for screening mammogram for malignant neoplasm of breast (principal); Z78.0 Asymptomatic menopausal state; Z80.3 Family history of malignant neoplasm of breast
CPT/HCPCS: 77067

== ENCOUNTER 2020-10-23 03:03 | Emergency (ER) | payer OTHER ==
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
[2020-10-23 03:53] LABS: Basophils % (A) 0 %; Eosinophils # (A) 0.2 k/uL (0-0.7); Eosinophils % (A) 2 %; HGB 13.4 gm/dL (11.4-16.0); Lymphocytes # (A) 2.9 k/uL (1.0-4.8); Lymphocytes % (A) 25 %; MCH 26.6 pg (25.0-35.0); MCHC 31.2 g/dL (31.0-37.0); MCV 85.3 fL (80.0-100.0); Mean Platelet Volume 8.7; Monocytes # (A) 0.5 k/uL (0-1.0); Monocytes % (A) 5 %; Neutrophils # (A) 7.6 k/uL (1.3-7.7); Neutrophils % (A) 66 %; Platelet Count 307 k/uL (150-450); RBC 5.05 m/uL (3.80-5.40); WBC 11.5 k/uL (3.8-10.6)
[2020-10-23 03:57] VITALS: RESP 18
[2020-10-23 04:04] LABS: ALT 17 U/L (4-34); AST 14 U/L (14-36); African American GFR (CKD) >90 (>60 ml/min/1.73 sqM); Albumin 3.9 g/dL (3.5-5.0); Alkaline Phosphatase 88 U/L (38-126); Anion Gap 7 mmol/L; Blood Urea Nitrogen 16 mg/dL (7-17); Calcium 9.2 mg/dL (8.4-10.2); Carbon Dioxide 24 mmol/L (22-30); Chloride 108 mmol/L (98-107); Creatine Kinase 74 U/L (30-135); Glucose 141 mg/dL (74-99); Lipase 62 U/L (23-300); Magnesium 1.9 mg/dL (1.6-2.3); Non-African American GFR(CKD) >90 (>60 ml/min/1.73 sqM); Potassium 4.8 mmol/L (3.5-5.1); Sodium 139 mmol/L (137-145); Total Bilirubin 0.2 mg/dL (0.2-1.3); Total Protein 7.3 g/dL (6.3-8.2)
[2020-10-23 04:19] LABS: INR 0.9 (<1.2); Prothrombin Time 9.7 sec (9.0-12.0)
--- NOTE | 2020-10-23 04:53 | XR ---
EXAMINATION TYPE: XR chest 2V DATE OF EXAM: 10/23/2020 COMPARISON: 09/12/2019 HISTORY: Chest pain TECHNIQUE: FINDINGS: Heart and mediastinum are normal. Lungs are clear of infiltrate. Costophrenic angles are cl ear. Bony thorax is intact. IMPRESSION: Normal chest. No change.
[2020-10-23 05:30] VITALS: BP 153/93; PULSE 78; TEMP 98.6
== END 2020-10-23 05:20 | disposition home or self-care (01) ==
LOC: EC 03:03
DX: I10 Essential (primary) hypertension (principal); R20.2 Paresthesia of skin; M79.602 Pain in left arm; E66.9 Obesity, unspecified; E11.9 Type 2 diabetes mellitus without complications; K21.9 Gastro-esophageal reflux disease without esophagitis; M79.7 Fibromyalgia; M19.90 Unspecified osteoarthritis, unspecified site; Z79.891 Long term (current) use of opiate analgesic; Z79.1 Long term (current) use of non-steroidal anti-inflammatories (NSAID); Z79.899 Other long term (current) drug therapy; Z80.3 Family history of malignant neoplasm of breast; Z88.8 Allergy status to other drugs, medicaments and biological substances; Z68.42 Body mass index [BMI] 45.0-49.9, adult
CPT/HCPCS: 36415; 71046; 80053; 82550; 83690; 83735; 83880; 84484; 85025; 85610; 85730; 93005; 99284

== ENCOUNTER → 2021-03-15 | Outpatient (CLI) | payer OTHER ==
--- NOTE | 2021-03-15 15:56 | US ---
EXAMINATION TYPE: US thyroid st tissue head/neck DATE OF EXAM: 03/15/2021 COMPARISON: US CLINICAL HISTORY: Z86.39 Grave's Disease E04.1 Thyroid nodule. GLAND SIZE: Right Lobe: 6.0 x 2.4 x 2.0 cm Overall Parenchyma: heterogenous Left Lobe: 6.2 x 3.3 x 2.5 cm Overall Parenchyma: heterogeneous Isthmus Thickness: 1.1 cm NODULES RIGHT: # of nodules measured on right: 0 LEFT: # of nodules measured on left: 1 1. 2.7 X 2.1 x 2.0 cm, lower pole, spongiform, hypoechoic nodule, which is wider than tall, with il l-defined margins, without echogenic foci. This has enlarged over the interval. TR 2 Prior size: 1.9 x 1.8 x 1.9 cm ISTHMUS: # of nodules measured in the isthmus: 1 1. 1.6 x 1.3 x 0.8cm spongiform, hypoechoic nodule, which is wider than tall, with ill-defined isha ins, without echogenic foci; this has enlarged over the interval. Prior size: 1.6 x 1.2 x 1.2 cm. Bilateral neck scanned: no evidence of lymphadenopathy. IMPRESSION: Benign findings 2017 ACR TI-RADS LEVEL: TR-RADS 2 - Not Suspicious: No FNA *Highest TI-RADS level nodule reported
== END | disposition home or self-care (01) ==
LOC: RADUSWWP 14:56
PROVIDERS: ATTEND Pediatrics Adolescent Medicine
DX: E04.1 Nontoxic single thyroid nodule (principal); Z86.39 Personal history of other endocrine, nutritional and metabolic disease
CPT/HCPCS: 76536

== ENCOUNTER → 2021-07-11 | Outpatient (CLI) | payer OTHER | END | disposition home or self-care (01) | LOC: RADXRMAIN 09:27 | PROVIDERS: ATTEND Family Medicine | DX: R13.10 Dysphagia, unspecified (principal); Z53.9 Procedure and treatment not carried out, unspecified reason ==

== ENCOUNTER → 2021-10-04 | Outpatient (CLI) | payer OTHER ==
--- NOTE | 2021-10-08 07:53 | MM ---
Reason for Exam: Screening (asymptomatic). Last mammogram was performed 1 year(s) and 1 month(s) ago. Patient History: Menarche at age 10. First Full-Term at age 28. Late child-bearing (after 28). Hysterectomy at age 46. Postmenopausal. Mother had breast cancer, age 40. Risk Values: Jen 5 year model risk: 2.2%. NCI Lifetime model risk: 16.5%. Prior Study Comparison: 09/04/2017 Bilateral Screening Mammogram, [facility]. 09/06/2018 Bilateral Screening Mammogram, [facility]. 09/27/2020 Bilateral Screening Mammogram, [facility]. Tissue Density: The breast tissue is heterogeneously dense. This may lower the sensitivity of mammography. Findings: Analyzed By CAD. There is no suspicious group of microcalcifications or new suspicious mass in either breast. Overall Assessment: Negative, BI-RAD 1 Management: Screening Mammogram of both breasts in 1 year. A clinical breast exam by your physician is recommended on an annual basis and results should be correlated with mammographic findings. Electronically signed and approved by: William Mcintyre M.D. Radiologis
== END | disposition home or self-care (01) ==
LOC: RADMAMWWP 11:37
PROVIDERS: ATTEND Family Medicine
DX: Z12.31 Encounter for screening mammogram for malignant neoplasm of breast (principal); Z78.0 Asymptomatic menopausal state; Z80.3 Family history of malignant neoplasm of breast
CPT/HCPCS: 77067

== ENCOUNTER → 2021-12-12 | Outpatient (CLI) | payer OTHER ==
[2021-12-12 07:57] VITALS: BP 158/83; PULSE 90; RESP 18; TEMP 98.2
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
== END ==
LOC: PNWHC3 07:26
PROVIDERS: ATTEND Anesthesiology
DX: M48.061 Spinal stenosis, lumbar region without neurogenic claudication (principal); M47.26 Other spondylosis with radiculopathy, lumbar region; M51.16 Intervertebral disc disorders with radiculopathy, lumbar region; E66.01 Morbid (severe) obesity due to excess calories; E11.9 Type 2 diabetes mellitus without complications; M19.90 Unspecified osteoarthritis, unspecified site; G89.29 Other chronic pain; M46.1 Sacroiliitis, not elsewhere classified; Z88.8 Allergy status to other drugs, medicaments and biological substances; Z68.42 Body mass index [BMI] 45.0-49.9, adult
CPT/HCPCS: 99211

== ENCOUNTER 2021-12-24 05:56 | Day surgery (SDC) | payer OTHER ==
[2021-12-23 08:37] VITALS: BMI 44.9
[~2021-12-24 05:56] MED LIST changes: -DEXAMETHASONE SOD PHOSPHATE 10 MG/ML 1 ML VIAL IV ONE; -HYDROmorphone 1 MG/ML 1 ML SYRINGE IVP PRN; +LACTATED RINGERS 1,000 ML IV SCH; -MIDAZOLAM 2 MG/2 ML VIAL IV PRN; -ONDANSETRON 4 MG/2 ML VIAL IVP ONE; -SCOPOLAMINE 1.5MG/72HR PATCH TRANSDERM ONE; -ceFAZolin 2 GM in SODIUM CHLORIDE 0.9% 100 ML IVPB ONE
[2021-12-24 06:29] VITALS: TEMP 97.4
[2021-12-24 06:39] LABS: Glucose,Whole Blood 117 mg/dL (70-110)
[2021-12-24] MEDS ORDERED: LIDOCAINE 2% INJ 20 MG/ML (2 ML VIAL) ONE (07:05)
[2021-12-24] MEDS ORDERED: PROPOFOL 10 MG/ML 20 ML VIAL IV ONE (07:05)
--- NOTE | 2021-12-24 07:29 | P.PCN ---
Date of Procedure: 12/24/21 Procedure(s) Performed: Brief history: Patient is a pleasant 51-year-old white female scheduled for an elective upper endoscopy as well as colonoscopy as a part of evaluation of GERD and screening for colon cancer Procedure performed: Esophagogastroduodenoscopy with biopsy Colonoscopy Preoperative diagnosis: GERD Screening for colon cancer Anesthesia: [facility] [place] Procedure: After informed consent was obtained from the patient was brought into the endoscopy unit and IV sedation was administered by anesthesia under continuous monitoring. Initially upper endoscopy was done. The Olympus GF 160 video endoscope was inserted inserted into the mouth and esophagus intubated without any difficulty and was gradually advanced into the stomach and duodenum and carefully examined. The bulb and second part of the duodenum appeared normal. The scope was then withdrawn into the stomach adequately insufflated with air and upon careful examination the antrum had mild gastritis and biopsies were done from this area. The body, cardia and fundus appeared normal. The scope was then withdrawn into the esophagus. The GE junction was located at 40 cm to the incisors. It appeared regular with no erythema erosions or ulcerations. Rest of the esophagus appeared normal. Biopsies were done from the distal eso phagus. Patient tolerated the procedure well. At this time the patient continued to remain sedation. Initial digital rectal examination was normal. Olympus CF 160 video colonoscope was then inserted into the rectum and gradually advanced to the cecum without any difficulty. Careful examination was performed as the scope was gradually being withdrawn. The prep was excellent. The cecum, ascending colon, transverse colon, descending colon, sigmoid colon and rectum appeared normal. Retroflexion was performed in the rectum and no lesions were noted. Patient tolerated the procedure well. Impression: 1. Upper endoscopy revealed mild diffuse gastritis but no evidence of esophagitis or esophageal stricture 2. Colonoscopy was within normal limits with no evidence of colorectal neoplasia Recommendations: Findings of this examination were discussed with the patient as well as her family. She was advised to follow with the biopsy results. Continue with omeprazole 20 mg daily and follow antireflux measures. Recommend repeat screening colonoscopy in 10 years
[2021-12-24 07:47] VITALS: BP 150/83; PULSE 96; RESP 18
== END 2021-12-24 08:29 | disposition home or self-care (01) ==
LOC: ORWHC2ENDO 05:56
PROVIDERS: ATTEND Internal Medicine Gastroenterology
DX: Z12.11 Encounter for screening for malignant neoplasm of colon (principal); K21.9 Gastro-esophageal reflux disease without esophagitis; K29.70 Gastritis, unspecified, without bleeding; I10 Essential (primary) hypertension; E78.5 Hyperlipidemia, unspecified; J45.909 Unspecified asthma, uncomplicated; E11.9 Type 2 diabetes mellitus without complications; E07.9 Disorder of thyroid, unspecified; Z88.8 Allergy status to other drugs, medicaments and biological substances
CPT/HCPCS: 45378; 88305; 88342; 43239; J2704; J2001

== ENCOUNTER → 2022-04-03 | Outpatient (CLI) | payer OTHER ==
[2022-04-03 10:21] VITALS: BP 152/88; PULSE 86; RESP 16; TEMP 97.9
--- NOTE | 2022-04-03 10:29 | P.PAINPG ---
Subjective Progress Note Date: 04/03/22 Principal diagnosis: Lumbar back pain, and leg pain Ms. Alvarez is a 51 year old pleasant female patient came to [facility] pain management clinic for follow-up visit. Patient described pain started many years ago after injury. Patient described pain as aching, sharp, throbbing, spasm type of pain. Sometimes her pain radiating to bilateral lower extremity. She is also experiencing some weakness in her lower extremity more worse on the left side. She has difficulty in performing that things secondary to her vertigo. Patient rated pain 6 out of 10 in severity. Which may very her pain level from 5-10 out of 10 in severity. Pain increases with activities, and standing, walking, sitting, bending forward, and lifting. Pain decreases with pain medications and rest, intervention procedures. Overall patient activities decreased secondary to pain. Pain medications helping to some extent. Because of the pain patient is feeling lack of sleep and interest and energy. Denied any bowel or bladder problems. Patient denies any adverse effects to medications. She is using cane as a walking aids for walking. Complaining depression secondary to pain but denied any suicidal/homicidal tendency at this time. Sleep pattern -altered secondary to pain. There are no signs of narcotic diversion/misuse/overuse and no new-onset weakness, bowel/bladder incontinence, saddle anesthesia, or no red flag symptoms. Conservative treatment tried: Frgn-wjk-tbkwnnm medications, Myuw-yyo-aglxbkv lidocaine patch Ice, and heat Physical therapy exercises-for 6 weeks, exercises at home as tolerated TENS unit's- helpful Chiropractic therapy- not much helpful Multiple intervention procedures by Dr. Duran Objective - Vital Signs Vital signs: Vital Signs Temp 97.9 F 04/03/22 10:07 Pulse 86 04/03/22 10:07 Resp 16 04/03/22 10:07 BP 152/88 04/03/22 10:07 Pulse Ox 98 04/03/22 10:07 FiO2 Intake & Output 04/02/22 04/03/22 04/03/22 18:59 06:59 18:59 Weight 122.016 kg - Exam General: Well-developed, well-nourished, no acute distress HEENT: Normocephalic, and atraumatic Neck: Supple, no neck swelling Psychiatric: Appropriate mood, and affect SR ACCOUNT EXECUTIVE: No focal neurological deficits Musculoskeletal: Upper extremity: Normal strength, and range of motion. Sensation grossly intact Lower extremity: Decreased strength 3 out of 5, and decreased range of motion overall and bilateral lower extremities. Sensation intact. Lumbar spine: Paravertebral tenderness: positive Lumbar facet load test : positive Sacroiliac joint tenderness: Positive Thigh thrust test: Positive SI joint compression test: Positive Fabere test: Positive Strait leg raising test unable to perform secondary to pain - Constitutional Constitutional Comment(s): 13 point review of symptoms negative except as mentioned in the history of present illness Assessment and Plan Assessment: Sacroiliac joint dysfunction Lumbar spondylosis without myelopathy Lumbar radiculopathy Myofascial pain syndrome, and chronic pain syndrome Morbid obesity Plan: #1 Diagnoses, prognosis, and multiple treatment options including but not limited to physical therapy, interventional therapy, adjunct medication therapy, narcotic medication, and surgical options were discussed with the patient. And all questions were answered to the patient's satisfaction. #2 treatment plan agreement : Patient was thoroughly discussed regarding the treatment options, alternatives, and importance of exercises as tolerated. Patient clearly understood. #3 Patient was counseled on importance of regular exercise. Including braden chi, aerobic exercises as tolerated. Which helps for chronic pain, and overall well- being. Patient also counseled regarding importance of weight control rolling chronic pain, and overall other health issues. By altering diet habits, minimizing sugar intake, and processed foods helps in minimizing Inflammation. Also discussed with the patient regarding intermittent fasting. #4 investigations: MAPS- reviewed , urine drug test- none #5 diagnostic tests: None #6 consultation : Recommended consultation, and weight loss clinic consultation # 7 interventional procedures: Bilateral sacroiliac joint injection . Proce dure, complications, alternatives discussed with the patient. #8 medications #1 Tylenol 500 mg by mouth every 12 to every 8 hours as needed for pain. Total dose not more than 2 g per day Medication side effects, complications, long-term consequences discussed with the patient. Patient recommended to contact the pain clinic if noticed any issues with given medications. #9 morphine milligrams equivalents dose ( MME) per day:0 from pain clinic # 10 TENS unit's, and percussion massage device #11 disposition: scheduled to follow up with pain clinic in 4 weeks duration. Time with Patient: Less than 30 PQRS Measure Charge Sheet Measure #130: Documentation of Current Meds in Medical Chart: Patient's medications documented in chart Measure #226: Tobacco Use: Screen & Cessation Intervention: Pt not a tobacco user Measure #111: Pneumonia Vaccination: Pneumococcal vaccine NOT administered or previously given Measure #47: Advance Care Plan: Advance care planning discussed & documented, pt chose/unable to give Measure #412: Opioid Treatment Agreement: No documentation of signed opioid treatment agreement Measure #408: Opioid Therapy Follow-up Evaluation: Patient had NO f/u eval minimum every 3 months during opioid therapy Measure #317: Preventitive Care & Scrn High Bld Press & F/U: Pre-hypertensive or hypertensive BP documented, pt will f/u with PCP Measure #128: Body Mass Index (BMI) Screening & Follow-up: BMI documented ABOVE normal parameters - f/u documented Measure #131: Pain Assessment & Follow-up: Pain positive & plan documented Measure #431: Unhealthy Alcohol Use Preventative Care & Scrn: Patient not identified as an unhealthy alcohol user Mode of Arrival: Cane - Pain Location Bilateral Lower Back Non-Pharmacological Interventions: Heat, Ice, Inactivity, Physical Therapy, Sitting, TENS Unit Pharmacological Interventions: PRN Medication PQRS Narrative: Smoking Status Never smoker Blood Pressure 152/88 Pain Intensity [Bilateral 10 Lower Back] Scale Used Numeric (1 - 10) Hx Alcohol Use (MH) No Home Medications: Ambulatory Orders Acetaminophen Tab [Tylenol Tab] 1,000 mg PO Q6HR PRN 12/23/21 Ascorbic Acid [Vitamin C] 250 mg PO DAILY 12/23/21 Atorvastatin [Lipitor] 20 mg PO DAILY 12/23/21 Cholecalciferol [Vitamin D3 (25 Mcg = 1000 Iu)] 125 mcg PO DAILY 12/23/21 Cyanocobalamin (Vitamin B-12) [Vitamin B-12] 1,000 mcg PO DAILY 12/23/21 Echinacea 500 mg PO DAILY 12/23/21 Empagliflozin [Jardiance] 25 mg PO DAILY 12/23/21 Losartan Potassium [Cozaar] 50 mg PO QAM 12/23/21 Omeprazole 20 mg PO DAILY 12/23/21 Zinc Gluconate [Zinc] 50 mg PO DAILY 12/23/21 metFORMIN HCL [Metformin HCl] 1,000 mg PO BID 12/23/21 Controlled Substance Measures - Controlled Substance Measures Is patient prescribed a controlled substance at discharge?: No
== END ==
LOC: PNWHC3 09:51
DX: M46.1 Sacroiliitis, not elsewhere classified (principal); M47.26 Other spondylosis with radiculopathy, lumbar region; M79.18 Myalgia, other site; E66.01 Morbid (severe) obesity due to excess calories; G89.4 Chronic pain syndrome; Z68.41 Body mass index [BMI] 40.0-44.9, adult; Z88.8 Allergy status to other drugs, medicaments and biological substances
CPT/HCPCS: 99211

== ENCOUNTER → 2022-05-07 | Outpatient (CLI) | payer OTHER ==
[2022-05-07 18:45] LABS: ALT 22 U/L (8-44); AST 8 U/L (13-35); African American GFR (CKD) 113.9 (60.0-200.0); Albumin 4.2 g/dL (3.8-4.9); Alkaline Phosphatase 79 U/L (41-126); BUN/Creat Ratio 17.45 Ratio (12.00-20.00); Blood Urea Nitrogen 12.2 mg/dL (9.0-27.0); Calcium 9.4 mg/dL (8.7-10.3); Carbon Dioxide 22.2 mmol/L (20.0-27.5); Chloride 103 mmol/L (96-109); Chol/HDL Ratio 3.09 Ratio; Glucose 125 mg/dL (70-110); LDL Cholesterol,Calculated 71.4 mg/dL (0.0-131.0); Non-African American GFR(CKD) 98.3 (60.0-200.0); Potassium 4.4 mmol/L (3.5-5.5); Sodium 140 mmol/L (135-145); Total Protein 7.2 g/dL (6.2-8.2)
[2022-05-07 21:26] LABS: Microalbumin Creatinine Ratio <30 mg/g Creat (0-30)
== END | disposition home or self-care (01) ==
LOC: LABWHC1 11:42
PROVIDERS: ATTEND Nurse Practitioner
DX: E11.9 Type 2 diabetes mellitus without complications (principal); E78.5 Hyperlipidemia, unspecified; Z86.39 Personal history of other endocrine, nutritional and metabolic disease
CPT/HCPCS: 36415; 80053; 80061; 82043; 82306; 82570; 83036; 84439; 84443; 84481; 86376; 86800

== ENCOUNTER → 2022-05-08 | Outpatient (CLI) | payer OTHER ==
--- NOTE | 2022-05-09 07:27 | US ---
EXAMINATION TYPE: US thyroid st tissue head/neck DATE OF EXAM: 05/08/2022 COMPARISON: 03/15/2021 CLINICAL HISTORY: E04.1 NONTOXIC SINGLE THYROID NODULE. Thyroid nodules. GLAND SIZE: Right Lobe: 6.1 x 1.9 x 2.1 cm Overall Parenchyma: homogenous Left Lobe: 6.2 x 2.2 x 2.8 cm Overall Parenchyma: heterogeneous Isthmus Thickness: .6 cm NODULES RIGHT: # of nodules measured on right: 0 LEFT: # of nodules measured on left: 0 ISTHMUS: # of nodules measured in the isthmus: 1 1. 2.0 X 0.9 x 1.4 cm previously 1.6 x 1.3 x 0.8cm TIRADS Score: 4 TIRADS Category 4: Moderately Suspicious Composition: Solid or almost completely solid (2 points). Echogenicity: Hypoechoic (2 points). Shape: Wider than tall (0 points). Margin: Smooth (0 points). Echogenic foci: None or large comet-tail artifacts (0 points) Recommendation: If >1.5cm: FNA; If >1cm: Follow up at 1,2, 3,5 years Bilateral neck scanned, no evidence of lymphadenopathy. IMPRESSION: Isthmus nodule which meets criteria for fine-needle aspiration if not already performed. 2017 ACR TI-RADS LEVEL: *Highest TI-RADS level nodule reported
== END | disposition home or self-care (01) ==
LOC: RADUSWWP 14:18
PROVIDERS: ATTEND Nurse Practitioner
DX: E04.1 Nontoxic single thyroid nodule (principal)
CPT/HCPCS: 76536

== ENCOUNTER → 2022-09-16 | Outpatient (CLI) | payer OTHER ==
--- NOTE | 2022-09-17 18:31 | BD ---
EXAMINATION TYPE: Axial Bone Density DATE OF EXAM: 09/16/2022 CLINICAL HISTORY: 52 years old Female. ICD-10 CODE: E11.9 TY E05.90 HYPERTHYROIDISM Z86.39 Z78.0 POS T MENOPAUSAL Height: 64.5 Weight: 265 FRAX RISK QUESTIONS: Family History (Parent hip fracture): no History of Fracture in Adulthood: no Secondary Osteoporosis: yes 2. Hyperthyroidism: yes RISK FACTORS HISTORY OF: Family History of Osteoporosis: no Active: yes Diet low in dairy products/other sources of calcium: no Postmenopausal woman: yes Lost more than 2 inches in height since high school: no Frequent falls: yes Poor Health: no MEDICATIONS: Thyroid Medications: no Additional Medications: yes HBP meds, diabetic meds, cholesterol, asthma vit d Additional History: no EXAM MEASUREMENTS: Bone mineral densitometry was performed using the [employer]ing ??? System. Bone mineral density as measured about the Lumbar spine is: ----- L1-L4(G/cm2): 1.349 T Score Values are as follows: ----- L1: 0.5 ----- L2: 1.1 ----- L3: 1.4 ----- L4: 2.2 ----- L1-L4: 1.4 Z Score Values are as follows: ----- L1: -0.6 ----- L2: 0.0 ----- L3: 0.3 ----- L4: 1.1 ----- L1-L4: 0.3 Bone mineral density baseline Bone mineral density about the R hip (g/cm2): 1.232 Bone mineral density about the L hip (g/cm2): 1.232 T Score values are as follows: -----R Neck: 0.9 -----L Neck: 1.0 -----R Total: 1.8 -----L Total: 1.8 Z Score values are as follows: -----R Neck: 0.3 -----L Neck: 0.4 -----R Total: 0.6 -----L Total: 0.6 Bone mineral density baseline FRAX%s: The graph provided illustrates a 1.7% chance for a major osteoporotic fx and a 0.0% chance fo r the hips probability for fx in 10 years time. IMPRESSION: Normal (Values between +1 and -1 indicate normal bone mass). Consider repeating this study in 5 year s or sooner if there is some new clinical indication. NOTE: T-SCORE=SD OF THE YOUNG ADULT MEAN.
== END | disposition home or self-care (01) ==
LOC: RADBDWWP 15:36
PROVIDERS: ATTEND Pediatrics Adolescent Medicine
DX: E11.9 Type 2 diabetes mellitus without complications (principal); E05.90 Thyrotoxicosis, unspecified without thyrotoxic crisis or storm; Z86.39 Personal history of other endocrine, nutritional and metabolic disease; Z78.0 Asymptomatic menopausal state
CPT/HCPCS: 77080

== ENCOUNTER → 2022-10-14 | Outpatient (CLI) | payer OTHER ==
--- NOTE | 2022-10-14 14:48 | MM ---
Reason for Exam: Clinical finding. Last screening mammogram was performed 12 month(s) ago. Patient History: Menarche at age 10. First Full-Term at age 28. Late child-bearing (after 28). Hysterectomy at age 46. Postmenopausal. Mother had breast cancer, age 40. Risk Values: Jen 5 year model risk: 2.1%. NCI Lifetime model risk: 12.5%. Tissue Density: There are scattered fibroglandular densities. Findings: Analyzed By CAD. Stable fibroglandular tissue. No new suspicious masses, calcifications or distortions. Overall Assessment: Negative, BI-RAD 1 Management: Screening Mammogram of both breasts in 1 year. Clinical management for tenderness. Results were given to the patient verbally at the time of exam. Patient should continue monthly self-breast exams. A clinical breast exam by your physician is recommended on an annual basis. This exam should not preclude additional follow-up of suspicious palpable abnormalities. Note on Jen scores and lifetime risk: 1. A Jen score greater than 3% is considered moderate risk. If this is the case, consider specialist referral to assess eligibility for a risk reducing agent. 2. If overall lifetime risk for the development of breast cancer is 20% or higher, the patient may qualify for future screening with alternating mammogram and breast MRI. Electronically signed and approved by: Gonzalo Hess DO
== END | disposition home or self-care (01) ==
LOC: RADMAMWWP 14:19
PROVIDERS: ATTEND Family Medicine
DX: N64.4 Mastodynia (principal); Z78.0 Asymptomatic menopausal state; Z80.3 Family history of malignant neoplasm of breast
CPT/HCPCS: 77066; G0279; 77062

== ENCOUNTER → 2022-10-16 | Outpatient (CLI) | payer OTHER ==
[2022-10-16 13:49] VITALS: BP 158/94; PULSE 79; RESP 16; TEMP 98
--- NOTE | 2022-10-16 14:35 | P.PAINPG ---
PQRS Measure Charge Sheet Comment: A 52 yr old female with a history of severe and chronic LBP secondary to lumbar DDD and spondylosis with facet arthropathy without myelopathy presents today for evaluation s/p PT x 6 wks in September 2022. Pain level is provoked at 9 /10 in intensity, constant, localized in the lumbar spine, sore, sharp in pio acter w/o shooting pain. Pain is provoked by sitting & standing for periods of 10 min or more. Pain is alleviated with medications, PT x 6 wks in Sep 2022, reclining, repositioning and rest. Would like pain medication as Ibu is not very effective. Oswestry axial pain score of 34. Interventional pain procedures completed include BL SI/ L SI injections Patient is currently on Ibu Patient denies any side effects of the medication(s), denies excessive drowsiness or sleepiness, denies suicidal ideation and reports that the current pain medication is helping to control the pain and improve activities of daily living. Patient denies any motor or sensory deficits. Patient denies any fever or night sweats, denies any change in the bowel movements or urination. Physical Examination: -Constitutional: Cooperative. Not in acute distress . - Neurologic: Cranial nerve II to XII intact. No focal neurological deficits. - Psychatric: Alert & oriented x 3. Matching mood & appropriate affect. Judgment and insight intact. - Musculoskeletal: Cervical spine: Muscle bulk/ tone/ strength in the bilateral upper extremities normal Vertebral body tenderness to palpation over Spurling test positive Distraction test positive Facet loading test positive TTP Thoracic spine Muscle bulk / tone/ strength in the bilateral paraspinal muscles normal Vertebral body tender to palpation over Facet loading test positive TTP Lumbar spine: Motor bulk/ tone/ strength lower extremities , thigh and legs : 5/5 Deep tendon reflexes : Normal Knee Jerk. Normal Ankle Jerk . Vertebral body tenderness to palpation over L5 Lumbar Facet Loading Test positive Straight Leg Raise: positive at 30 degrees right side/ left side Gaenslen's Test positive Sacral spine : Severe tenderness over the Sacroiliac joint: right side / left side Range of motion: Flexion of the lumbar spine <60 degrees Range of motion: Extension of the lumbar spine <20 degrees Gaenslen's Test positive right side / left side Eva test: positive right side / left side Thigh Thrust Test positive right side / left side Sacral Thrust Test positive right side / left side Assessment and plan: Chronic LBP secondary to lumbar DDD, spondylosis with facet arthropathy without myelopathy Recommendation of LEIGHA L5-S1. May need a series of injections for optimal pain relief. Risks, benefits of procedure discussed and pt verbalized under standing. Admits to anticoagulant use or medical history of diabetes. Protocol for discontinuation/ continuation of medications ana procedure discussed. All questions answered. Chronic and current use of high-risk medication (Opioids). The patient was counseled about risk of opioid use, psychological risk associated with opioids and was orally counseled to not overuse , divert or sell medications. Pt is to store medication in a safe location. The patient is counseled against driving while using narcotic medications and also not to use alcohol or any illicit recreational drugs. Patient verbalized understanding that the lack of compliance will result in failure to renew narcotic prescription(s) as well as possible discharge from the clinic Diagnoses, prognosis and treatment options including but not limited to physical therapy, surgical interventions, interventional therapies and medication management including narcotics and adjuvant medication were discussed. All patient questions answered MAPS reviewed and it was appropriate. Prescription for [place] 5/325mg #12 NR. Use, side effects, adverse gege ctions and safe storage discussed. Pt verbalized understanding. I have spent less than 30 minutes on patient care today. Dr Rae was available by phone for the evaluation of this patient. The time was used to review the medical records including relevant urine studies and Prescription history (MAPs), review of the available imaging, evaluation and examination of the patient, coordination of care with the medical staff and if applicable referring physicians, as well as creation of the medical record - Pain Location Bilateral Lower Back Non-Pharmacological Interventions: Inactivity, Physical Therapy Pharmacological Interventions: PRN Medication PQRS Narrative: Smoking Status Never smoker Hx Alcohol Use (MH) No Home Medications: Ambulatory Orders Acetaminophen Tab [Tylenol Tab] 1,000 mg PO Q6HR PRN 12/23/21 Ascorbic Acid [Vitamin C] 250 mg PO DAILY 12/23/21 Atorvastatin [Lipitor] 20 mg PO DAILY 12/23/21 Cholecalciferol [Vitamin D3 (25 Mcg = 1000 Iu)] 125 mcg PO DAILY 12/23/21 Cyanocobalamin (Vitamin B-12) [Vitamin B-12] 1,000 mcg PO DAILY 12/23/21 Echinacea 500 mg PO DAILY 12/23/21 Empagliflozin [Jardiance] 25 mg PO DAILY 12/23/21 Losartan Potassium [Cozaar] 50 mg PO QAM 12/23/21 Omeprazole 20 mg PO DAILY 12/23/21 Zinc Gluconate [Zinc] 50 mg PO DAILY 12/23/21 metFORMIN HCL [Metformin HCl] 1,000 mg PO BID 12/23/21 Ibuprofen 600 - 800 mg PO BID 04/24/22 Chlorpheniramine/Dextromethorp [Coricidin Hbp Cough & Cold Tab] 1 each PO Q4H PRN 05/09/22 HYDROcodone/APAP 5-325MG [[place] 5-325] 1 tab PO Q4HR PRN 3 Days #15 tab 10/16/22 Controlled Substance Measures - Controlled Substance Measures Is patient prescribed a controlled substance at discharge?: Yes When asked, does pt state using other controlled substances?: No If prescribed controlled substance>3 days was MAPS reviewed?: Prescribed <3 Days
== END ==
LOC: PNWHC3 13:14
PROVIDERS: ATTEND Specialist
DX: M51.36 Other intervertebral disc degeneration, lumbar region (principal); M47.816 Spondylosis without myelopathy or radiculopathy, lumbar region; G89.29 Other chronic pain; Z79.891 Long term (current) use of opiate analgesic; Z88.8 Allergy status to other drugs, medicaments and biological substances
CPT/HCPCS: 99211

== ENCOUNTER 2022-11-06 13:28 | Day surgery (SDC) | payer OTHER ==
[2022-11-06 13:50] LABS: Glucose,Whole Blood 105 mg/dL (70-110)
[2022-11-06 13:51] VITALS: TEMP 98
[2022-11-06] MEDS ORDERED: methylPREDNISolone ACETATE 40 MG/ML 1 ML VIAL ONE (13:59)
[2022-11-06] MEDS ORDERED: IOPAMIDOL M200 10 ML VIAL ONE (13:59)
--- NOTE | 2022-11-06 14:06 | P.PCN ---
Date of Procedure: 11/06/22 Procedure(s) Performed: PREOPERATIVE DIAGNOSIS: 1- Lumbar Degenerative Disc Diseases 2-Lumbar spondylosis with Facet arthropathy without myelopathy. POSTOPERATIVE DIAGNOSIS: 1-lumbar degenerative disc disease. 2-lumbar spondylosis with facet arthropathy without myelopathy. PROCEDURE 1. Lumbar epidural steroid injection under fluoroscopic guidance at the L5-S1 level. (Fluoroscopy imaging was available in radiology department) 2. Lumbar epidurogram. ANESTHESIA: Lidocaine 1% 3 and then only. EBL: Minimal PROCEDURE INDICATION: The patient with low back pain and radiculitis symptoms unresponsive to conservative treatment. Fluoroscopy was used to optimize visualization of the needle placement and to maximize safety. PROCEDURE DESCRIPTION / TECHNIQUE: The patient was seen and identified in the preoperative area. Risks, benefits, complications including but not limited to infections ,bleeding ,allergic reaction to the medications ,nerve damage and not complete pain releife , and alternatives were discussed with the patient. The patient agreed to proceed with the procedure and signed the consent, and vital signs were stable. Patient was taken to the OR and time out was completed. The patient was placed in the prone position on procedure table and a pillow was placed under the abdomen to reduce lumbar lordosis. The lumbosacral area was prepped and draped in the usual sterile fashion.ere closely monitored during the procedure. Vital signs was monitered during the entire procedure. Using anterior-posterior fluoroscopy, the L5-S1 interlaminar space was identified and the skin over this site was marked and then infiltrated with 1% lidocaine subcutaneously. Subsequently, a 18-gauge 6 inches long Tuohy epidural needle was inserted and advanced toward the epidural space using the ``Loss of resistance technique and guided by AP and lateral fluoroscopy. The correct needle position in the epidural space was verified with the injection of 2 mL of the water soluble contrast dye Isovue 200 contrast and observing an excellent epidurogram with the epidural spread of the dye, after negative aspiration for blood and CSF and in the absence of paresthesias. Again after negative aspiration, a 6 ml mixture containing 40 mg of Depo-medrol ( Preservetive Free ), and 2 ml of preservative free Normal Saline, and 2 ml of preservative free lidocaine 1% solution was injected and a washout of epidurogram was seen. Needle was withdrawn intact, skin was cleansed, and bandages were applied. COMPLICATIONS: None DISPOSITION / PLANS: The patient was placed in a supine position and transferred to the recovery area in a stable condition for observation. There was no evidence of lower extremity motor or sensory deficit after the procedure. Patient was discharged from the recovery room after meeting discharge criteria. Home discharge instructions were given to the patient by the staff. The patient was reexamined prior to discharge. The patient will schedule a follow up in the clinic in 2-4 weeks.
[2022-11-06 14:10] VITALS: BP 142/80; PULSE 75; RESP 16
--- NOTE | 2022-11-06 15:13 | FL ---
Intraoperative/procedural fluoroscopic services were provided for lumbar epidural steroid injection. Total fluoroscopy time is 4.8 seconds with a total of 1 submitted image to PACS. Total DAP [id number] mG ym2. Please see the operative note for further details.
== END 2022-11-06 14:41 | disposition home or self-care (01) ==
LOC: ORPAIN 13:28
PROVIDERS: ATTEND Anesthesiology
DX: M51.16 Intervertebral disc disorders with radiculopathy, lumbar region (principal); M47.26 Other spondylosis with radiculopathy, lumbar region; Z88.8 Allergy status to other drugs, medicaments and biological substances
CPT/HCPCS: 62323; J1030; Q9966

== ENCOUNTER → 2022-11-12 | Outpatient (CLI) | payer OTHER ==
--- NOTE | 2022-11-15 19:49 | US ---
EXAMINATION TYPE: US thyroid st tissue head/neck DATE OF EXAM: 11/12/2022 COMPARISON: 05/08/2022 CLINICAL INDICATION: Female, 52 years old with history of R76.8 THY ANTIBODY POS E04.1 THY NODULE; f /u GLAND SIZE: Right Lobe: 5.4 x 1.6 x 2.0 cm Overall Parenchyma: homogenous Left Lobe: 5.1 x 2.6 x 2.6 cm Overall Parenchyma: heterogenous Isthmus Thickness: 0.6 cm NODULES RIGHT: # of nodules measured on right: 0 LEFT: # of nodules measured on left: measured largest 1. 2.0 X 1.4 x 2.4 cm, mid mid, isoechoic nodule, which is wider than tall, with ill-defined margin s, without echogenic foci. Prior size: 2.7 x 2.0 x 2.1 cm ISTHMUS: # of nodules measured in the isthmus: 1 1. 1.3 X 1.3 x 1.0 cm solid or almost completely solid, isoechoic nodule, which is wider than tall, with smooth margins, without echogenic foci. Prior size: 2.0 x 1.3 x 0.9 cm Bilateral neck scanned, no evidence of lymphadenopathy. IMPRESSION: Borderline thyromegaly. There is a TR3 isoechoic nodule within the left lobe and within the thyroid i sthmus. In the left lobe, this measures slightly smaller at 2.4 x 2.0 cm (versus 2.7 x 2.1 cm, previo usly). In the isthmus, it measures slightly smaller as well at 1.3 x 1.3 cm (versus 2.0 x 1.3 cm, pre viously.
== END | disposition home or self-care (01) ==
LOC: RADUSWWP 15:12
PROVIDERS: ATTEND Pediatrics Adolescent Medicine
DX: E04.1 Nontoxic single thyroid nodule (principal); R76.8 Other specified abnormal immunological findings in serum
CPT/HCPCS: 76536

== ENCOUNTER → 2022-12-22 | Outpatient (CLI) | payer OTHER ==
--- NOTE | 2022-12-22 14:43 | P.PAINPG ---
PQRS Measure Charge Sheet Comment: A 52 yr old female with a history of severe and chronic LBP secondary to lumbar DDD and spondylosis with facet arthropathy without myelopathy presents today for evaluation s/p LEIGHA L5-S1 #1. Pt states she experienced 50 % pain relief x 2 wks s/p procedure. Pain level is provoked at 9 /10 in intensity, constant, localized in the lumbar spine, sore, sharp in character w/o shooting pain. Pain is provoked by sitting & standing for periods of 10 min or more. Pain is alleviated with medications, PT x 6 wks in Sep 2022, reclining, repositioning and rest. Would like pain medication as Ibu is not very effective. Oswestry axial pain score of 34. Interventional pain procedures completed include BL SI/ L SI injections, LEIGHA L5- S1 x1 Patient is currently on Ibu Patient denies any side effects of the medication(s), denies excessive drowsiness or sleepiness, denies suicidal ideation and reports that the current pain medication is helping to control the pain and improve activities of daily living. Patient denies any motor or sensory deficits. Patient denies any fever or night sweats, denies any change in the bowel movements or urination. Physical Examination: -Constitutional: Cooperative. Not in acute distress . - Neurologic: Cranial nerve II to XII intact. No focal neurological deficits. - Psychatric: Alert & oriented x 3. Matching mood & appropriate affect. Judgment and insight intact. - Musculoskeletal: Cervical spine: Muscle bulk/ tone/ strength in the bilateral upper extremities normal Vertebral body tenderness to palpation over Spurling test positive Distraction test positive Facet loading test positive TTP Thoracic spine Muscle bulk / tone/ strength in the bilateral paraspinal muscles normal Vertebral body tender to palpation over Facet loading test positive TTP Lumbar spine: Motor bulk/ tone/ strength lower extremities , thigh and legs : 5/5 Deep tendon reflexes : Normal Knee Jerk. Normal Ankle Jerk . Vertebral body tenderness to palpation over L5 Lumbar Facet Loading Test positive Straight Leg Raise: positive at 30 degrees right side/ left side Gaenslen's Test positive Sacral spine : Severe tenderness over the Sacroiliac joint: right side / left side Range of motion: Flexion of the lumbar spine <60 degrees Range of motion: Extension of the lumbar spine <20 degrees Gaenslen's Test positive right side / left side Eva test: positive right side / left side Thigh Thrust Test positive right side / left side Sacral Thrust Test positive right side / left side Assessment and plan: Chronic LBP secondary to lumbar DDD, spondylosis with facet arthropathy without myelopathy Recommendation of PT x 6 wks w a focus on aquatherapy Dx M51.36. Information on SCS provided. All questions answered. Chronic and current use of high-risk medication (Opioids). The patient was counseled about risk of opioid use, psychological risk associated with opioids and was orally counseled to not overuse , divert or sell medications. Pt is to store medication in a safe location. The patient is counseled against driving while using narcotic medi cations and also not to use alcohol or any illicit recreational drugs. Patient verbalized understanding that the lack of compliance will result in failure to renew narcotic prescription(s) as well as possible discharge from the clinic Diagnoses, prognosis and treatment options including but not limited to physical therapy, surgical interventions, interventional therapies and medicat ion management including narcotics and adjuvant medication were discussed. [place] 5/325mg #15 NR. Use side effects adverse reactions, safe storage discussed. All patient questions answered I have spent less than 30 minutes on patient care today. Dr Rae was available by phone for the evaluation of this patient. The time was used to review the medical records including relevant urine studies and Prescription history (MAPs), review of the available imaging, evaluation and examination of the patient, coordination of care with the medical staff and if applicable referring physicians, as well as creation of the medical record PQRS Narrative: Smoking Status Never smoker Hx Alcohol Use (MH) No Home Medications: Ambulatory Orders Acetaminophen Tab [Tylenol Tab] 1,000 mg PO Q6HR PRN 12/23/21 Ascorbic Acid [Vitamin C] 250 mg PO QAM 12/23/21 Atorvastatin [Lipitor] 20 mg PO HS 12/23/21 Cholecalciferol [Vitamin D3 (25 Mcg = 1000 Iu)] 125 mcg PO QAM 12/23/21 Cyanocobalamin (Vitamin B-12) [Vitamin B-12] 1,000 mcg PO QAM 12/23/21 Echinacea 500 mg PO QAM 12/23/21 Empagliflozin [Jardiance] 25 mg PO QAM 12/23/21 Losartan Potassium [Cozaar] 50 mg PO QAM 12/23/21 Omeprazole 20 mg PO QAM 12/23/21 Zinc Gluconate [Zinc] 50 mg PO QAM 12/23/21 metFORMIN HCL [Metformin HCl] 1,000 mg PO BID 12/23/21 Ibuprofen 600 - 800 mg PO BID 04/24/22 Dulaglutide [Trulicity] 1.5 mg SQ SA 11/04/22 Montelukast [Singulair] 10 mg PO QAM 11/04/22 HYDROcodone/APAP 5-325MG [[place] 5-325] 1 tab PO Q4HR PRN 3 Days #15 tab 12/22/22 Controlled Substance Measures - Controlled Substance Measures Is patient prescribed a controlled substance at discharge?: Yes When asked, does pt state using other controlled substances?: No If prescribed controlled substance>3 days was MAPS reviewed?: Prescribed <3 Days
[2022-12-22 14:46] VITALS: BP 121/80; PULSE 89; RESP 15; TEMP 98.2
== END ==
LOC: PNWHC3 14:16
PROVIDERS: ATTEND Specialist
DX: M51.36 Other intervertebral disc degeneration, lumbar region (principal); M47.816 Spondylosis without myelopathy or radiculopathy, lumbar region; G89.29 Other chronic pain; Z79.891 Long term (current) use of opiate analgesic; Z88.8 Allergy status to other drugs, medicaments and biological substances
CPT/HCPCS: 99211

== ENCOUNTER → 2023-01-14 | Outpatient (CLI) | payer OTHER ==
[2023-01-14 19:42] LABS: HCT 45.2 % (37.2-46.3); HGB 13.8 d/dL (12.0-15.0); MCH 25.9 pg (27.0-32.0); MCHC 30.5 d/dL (32.0-37.0); MCV 84.8 FL (80.0-97.0); Mean Platelet Volume 11.1 FL (9.5-12.2); NRBC Per 100 WBC 0 X 10*3/uL (0.00-0.01); Platelet Count 346 X 10*3/uL (140-440); RBC 5.33 X 10*6/uL (4.10-5.20); RDW 15.7 % (11.5-14.5)
[2023-01-15 03:02] LABS: T4, Free (Free Thyroxine) 1.45 ng/dL (0.80-1.80)
== END | disposition home or self-care (01) ==
LOC: LABWHC1 11:24
PROVIDERS: ATTEND Nurse Practitioner
DX: E11.9 Type 2 diabetes mellitus without complications (principal); E05.90 Thyrotoxicosis, unspecified without thyrotoxic crisis or storm
CPT/HCPCS: 36415; 83036; 84439; 84443; 84481; 85027; 86376; 86800

== ENCOUNTER → 2023-02-02 | Outpatient (CLI) | payer OTHER ==
--- NOTE | 2023-02-02 14:27 | P.PN ---
Subjective Progress Note Date: 02/02/23 A 52 yr old female with a history of severe and chronic LBP secondary to lumbar DDD and spondylosis with facet arthropathy without myelopathy presents today for evaluation s/p LEIGHA L5-S1 #1. Pt states she experienced 50 % pain relief x 2 wks s/p procedure. Pain level is provoked at 9 /10 in intensity, constant, localized in the lumbar spine, sore, sharp in character w/o shooting pain. Pain is provoked by sitting & standing for periods of 10 min or more. Pain is alleviated with medications, PT x 6 wks in Sep 2022, reclining, repositioning and rest. Would like pain medication as Ibu is not very effective. Oswestry axial pain score of 34. Interventional pain procedures completed include BL SI/ L SI injections, LEIGHA L5- S1 x1 Patient is currently on Ibu Patient denies any side effects of the medication(s), denies excessive drowsiness or sleepiness, denies suicidal ideation and reports that the current pain medication is helping to control the pain and improve activities of daily living. Patient denies any motor or sensory deficits. Patient denies any fever or night sweats, denies any change in the bowel movements or urination. Physical Examination: -Constitutional: Cooperative. Not in acute distress . - Neurologic: Cranial nerve II to XII intact. No focal neurological deficits. - Psychatric: Alert & oriented x 3. Matching mood & appropriate affect. Judgment and insight intact. - Musculoskeletal: Cervical spine: Muscle bulk/ tone/ strength in the bilateral upper extremities normal Vertebral body tenderness to palpation over Spurling test positive Distraction test positive Facet loading test positive TTP Thoracic spine Muscle bulk / tone/ strength in the bilateral paraspinal muscles normal Vertebral body tender to palpation over Facet loading test positive TTP Lumbar spine: Motor bulk/ tone/ strength lower extremities , thigh and legs : 5/5 Deep tendon reflexes : Normal Knee Jerk. Normal Ankle Jerk . Vertebral body tenderness to palpation over L5 Lumbar Facet Loading Test positive Straight Leg Raise: positive at 30 degrees right side/ left side Gaenslen's Test positive Sacral spine : Severe tenderness over the Sacroiliac joint: right side / left side Range of motion: Flexion of the lumbar spine <60 degrees Range of motion: Extension of the lumbar spine <20 degrees Gaenslen's Test positive right side / left side Eva test: positive right side / left side Thigh Thrust Test positive right side / left side Sacral Thrust Test positive right side / left side Assessment and plan: Chronic LBP secondary to lumbar DDD, spondylosis with facet arthropathy without myelopathy Patient continued to have pain after physical therapy Patient had minimal benefit from lumbar epidural steroid injection and from sacroiliac steroid injection Patient tolerated candidate for diagnostic medial branch block lumbar area at L4 5 and L5-S1 bilaterally Chronic and current use of high-risk medication (Opioids). The patient was counseled about risk of opioid use, psychological risk associated with opioids and was orally counseled to not overuse , divert or sell medications. Pt is to store medication in a safe location. The patient is counseled against driving while using narcotic medications and also not to use alcohol or any illicit recreational drugs. Patient verbalized understanding that the lack of compliance will result in failure to renew narcotic prescription(s) as well as possible discharge from the clinic Diagnoses, prognosis and treatment options including but not limited to physical therapy, surgical interventions, interventional therapies and medication management including narcotics and adjuvant medication were discussed. percocet 5/325mg #15 NR. Use side effects adverse reactions, safe storage discussed. All patient questions answered PQRS Narrative: Smoking Status Never smoker Hx Alcohol Use (MH) No Home Medications: Ambulatory Orders Acetaminophen Tab [Tylenol Tab] 1,000 mg PO Q6HR PRN 12/23/21 Ascorbic Acid [Vitamin C] 250 mg PO QAM 12/23/21 Atorvastatin [Lipitor] 20 mg PO HS 12/23/21 Cholecalciferol [Vitamin D3 (25 Mcg = 1000 Iu)] 125 mcg PO QAM 12/23/21 Cyanocobalamin (Vitamin B-12) [Vitamin B-12] 1,000 mcg PO QAM 12/23/21 Echinacea 500 mg PO QAM 12/23/21 Empagliflozin [Jardiance] 25 mg PO QAM 12/23/21 Losartan Potassium [Cozaar] 50 mg PO QAM 12/23/21 Omeprazole 20 mg PO QAM 12/23/21 Zinc Gluconate [Zinc] 50 mg PO QAM 12/23/21 metFORMIN HCL [Metformin HCl] 1,000 mg PO BID 12/23/21 Ibuprofen 600 - 800 mg PO BID 04/24/22 Dulaglutide [Trulicity] 1.5 mg SQ SA 11/04/22 Montelukast [Singulair] 10 mg PO QAM 11/04/22 HYDROcodone/APAP 5-325MG [[place] 5-325] 1 tab PO Q4HR PRN 3 Days #15 tab 12/22/22 Controlled Substance Measures - Controlled Substance Measures Is patient prescribed a controlled substance at discharge?: Yes When asked, does pt state using other controlled substances?: No If prescribed controlled substance>3 days was MAPS reviewed?: Prescribed <3 Days Objective - Vital Signs Vital signs: Intake & Output 02/01/23 02/02/23 02/02/23 18:59 06:59 18:59 Weight 122.016 kg
[2023-02-02 14:48] VITALS: BP 152/82; PULSE 76; RESP 16; TEMP 97.9
== END ==
LOC: PNWHC3 13:53
PROVIDERS: ATTEND Specialist
DX: M51.36 Other intervertebral disc degeneration, lumbar region (principal); M47.816 Spondylosis without myelopathy or radiculopathy, lumbar region; G89.29 Other chronic pain; Z79.891 Long term (current) use of opiate analgesic; Z88.8 Allergy status to other drugs, medicaments and biological substances
CPT/HCPCS: 99211

== ENCOUNTER → 2023-06-19 | Outpatient (CLI) | payer OTHER ==
[2023-06-19 18:08] LABS: Basophils # (A) 0.04 X 10*3/uL (0.00-0.10); Basophils % (A) 0.4 %; Eosinophils # (A) 0.17 X 10*3/uL (0.04-0.35); Eosinophils % (A) 1.8 %; HCT 44.7 % (37.2-46.3); HGB 13.8 g/dL (12.0-15.0); MCHC 30.9 g/dL (32.0-37.0); MCV 84.2 FL (80.0-97.0); Monocytes # (A) 0.66 X 10*3/uL (0.20-1.00); Monocytes % (A) 7.2 %; NRBC Per 100 WBC 0 X 10*3/uL (0.00-0.01); Neutrophils # (A) 5.93 X 10*3/uL (1.80-7.70); Neutrophils % (A) 64.4 %; Platelet Count 253 X 10*3/uL (140-440); RBC 5.31 X 10*6/uL (4.10-5.20); RDW 15.4 % (11.5-14.5); WBC 9.22 X 10*3/uL (4.50-10.00)
[2023-06-19 18:43] LABS: LDL Cholesterol,Calculated 56.9 mg/dL (0.0-131.0); VLDL Calculation 13.78 mg/dL (5.00-40.00)
[2023-06-19 19:16] LABS: T4, Free (Free Thyroxine) 1.48 ng/dL (0.80-1.80)
[2023-06-19 19:28] LABS: ALT 15 U/L (8-44); AST 11 U/L (13-35); Albumin 4.1 g/dL (3.8-4.9); Albumin/Globulin Ratio 1.21 Ratio (1.60-3.17); Alkaline Phosphatase 87 U/L (41-126); Blood Urea Nitrogen 10.8 mg/dL (9.0-27.0); Calcium 9.6 mg/dL (8.7-10.3); Carbon Dioxide 21.5 mmol/L (21.6-31.8); Chloride 105 mmol/L (96-109); Globulin 3.4 g/dL (1.6-3.3); Glucose 85 mg/dL (70-110); Potassium 4.8 mmol/L (3.5-5.5); Sodium 140 mmol/L (135-145); Total Bilirubin 0.3 mg/dL (0.3-1.2); Total Protein 7.5 g/dL (6.2-8.2)
[2023-06-19 21:53] LABS: Microalbumin Creatinine Ratio <10 mg/g Cr (0-30)
== END | disposition home or self-care (01) ==
LOC: LABWHC1 13:40
PROVIDERS: ATTEND Nurse Practitioner
DX: E11.9 Type 2 diabetes mellitus without complications (principal); E05.90 Thyrotoxicosis, unspecified without thyrotoxic crisis or storm; R76.8 Other specified abnormal immunological findings in serum; Z86.39 Personal history of other endocrine, nutritional and metabolic disease
CPT/HCPCS: 36415; 80053; 80061; 82043; 82306; 82570; 82607; 83036; 84439; 84443; 84481; 85025

== ENCOUNTER → 2023-10-16 | Outpatient (CLI) | payer OTHER ==
--- NOTE | 2023-10-23 21:40 | MM ---
Reason for Exam: Screening (asymptomatic). Last screening mammogram was performed 12 month(s) ago. Patient History: Menarche at age 10. First Full-Term at age 28. Late child-bearing (after 28). Hysterectomy at age 46. Postmenopausal. Mother had breast cancer, age 40. Risk Values: Jen 5 year model risk: 2.2%. NCI Lifetime model risk: 12.3%. Prior Study Comparison: 09/27/2020 Bilateral Screening Mammogram, [facility]. 10/04/2021 Bilateral MG screening mammo w CAD, [facility]. 10/14/2022 Bilateral MG 3D diag mammo w/cad YUE, [facility]. Tissue Density: There are scattered areas of fibroglandular density. Findings: Analyzed By CAD. Unchanged bilateral global asymmetries. There is no suspicious group of microcalcifications or new suspicious mass in either breast. Overall Assessment: Benign, BI-RAD 2 Management: Screening Mammogram of both breasts in 1 year. . Patient should continue monthly self-breast exams. A clinical breast exam by your physician is recommended on an annual basis. This exam should not preclude additional follow-up of suspicious palpable abnormalities. Note on Jen scores and lifetime risk: 1. A Jen score greater than 3% is considered moderate risk. If this is the case, consider specialist referral to assess eligibility for a risk reducing agent. 2. If overall lifetime risk for the development of breast cancer is 20% or higher, the patient may qualify for future screening with alternating mammogram and breast MRI. Electronically signed and approved by: Dianelys Mtat M.D. Radiologist
== END | disposition home or self-care (01) ==
LOC: RADMAMWWP 11:21
PROVIDERS: ATTEND Family Medicine
DX: Z12.31 Encounter for screening mammogram for malignant neoplasm of breast (principal); R92.323 Mammographic fibroglandular density, bilateral breasts; Z78.0 Asymptomatic menopausal state; Z80.3 Family history of malignant neoplasm of breast
CPT/HCPCS: 77067

== ENCOUNTER → 2023-12-17 | Outpatient (CLI) | payer OTHER ==
--- NOTE | 2023-12-17 15:52 | US ---
EXAMINATION TYPE: US thyroid st tissue head/neck DATE OF EXAM: 12/17/2023 COMPARISON: US 2022 CLINICAL INDICATION: Female, 53 years old with history of E04.1 THYROID NODULE; GLAND SIZE: Right Lobe: 5.9 x 1.8 x 2.5 cm, enlarged Overall Parenchyma: heterogeneous Left Lobe: 5.7 x 2.5 x 2.8 cm, enlarged Overall Parenchyma: heterogeneous Isthmus Thickness: 0.8 cm NODULES RIGHT: # of nodules measured on right: 0 LEFT: # of nodules measured on left: 1 1. 3.2 X 2.2 x 2.7 cm, lower mid, solid or almost completely solid, isoechoic nodule, which is wide r than tall, with ill-defined margins, without echogenic foci. TR 3 Prior size: 2.0 x 2.4 x 1.4 cm ISTHMUS: # of nodules measured in the isthmus: 1 1. 1.6 X 1.0 x 1.4 cm solid or almost completely solid, isoechoic nodule, which is wider than tall, with ill-defined margins, without echogenic foci.TR 3 Prior size: 1.3 x 1.0 x 1.3 cm Bilateral neck scanned, no evidence of lymphadenopathy. IMPRESSION: 1. Interval increase in size of the large left thyroid nodule measuring 3.2 cm versus 2.4 cm. This no dule meets the criteria of the ACR guidelines for FNA biopsy. 2. Thyromegaly correlate for thyroiditis. 2017 ACR TI-RADS LEVEL: TR-RADS 3 - Mildly Suspicious: Follow if > 1.5 cm, FNA if > 2.5 cm *Highest TI-RADS level nodule reported
== END | disposition home or self-care (01) ==
LOC: RADUSWWP 15:20
PROVIDERS: ATTEND Pediatrics Adolescent Medicine
DX: E04.1 Nontoxic single thyroid nodule (principal)
CPT/HCPCS: 76536

== ENCOUNTER → 2024-10-18 | Outpatient (CLI) | payer OTHER ==
--- NOTE | 2024-10-18 13:09 | MM ---
Reason for Exam: Screening (asymptomatic). Last screening mammogram was performed 12 month(s) ago. Patient History: Menarche at age 10. First Full-Term at age 28. Late child-bearing (after 30). Hysterectomy at age 46. Postmenopausal. Mother had breast cancer, age 40. Risk Values: Jen 5 year model risk: 2.2%. NCI Lifetime model risk: 12.0%. Prior Study Comparison: 10/04/2021 Bilateral MG screening mammo w CAD, [facility]. 10/14/2022 Bilateral MG 3D diag mammo w/cad YUE, [facility]. 10/16/2023 Bilateral MG screening mammo w CAD, [facility]. Tissue Density: There are scattered areas of fibroglandular density. Findings: Analyzed By CAD. There is no suspicious group of microcalcifications or new suspicious mass in either breast. Overall Assessment: Benign, BI-RAD 2 Management: Screening Mammogram of both breasts in 1 year. . Patient should continue monthly self-breast exams. A clinical breast exam by your physician is recommended on an annual basis. This exam should not preclude additional follow-up of suspicious palpable abnormalities. Note on Jen scores and lifetime risk: 1. A Jen score greater than 3% is considered moderate risk. If this is the case, consider specialist referral to assess eligibility for a risk reducing agent. 2. If overall lifetime risk for the development of breast cancer is 20% or higher, the patient may qualify for future screening with alternating mammogram and breast MRI. [facility], , 10/18/2024 1:07 PM. Electronically signed and approved by: William Mcintyre M.D. Radiologis
== END | disposition home or self-care (01) ==
LOC: RADMAMWWP 12:44
PROVIDERS: ATTEND Family Medicine
DX: Z12.31 Encounter for screening mammogram for malignant neoplasm of breast (principal); R92.323 Mammographic fibroglandular density, bilateral breasts; Z78.0 Asymptomatic menopausal state; Z80.3 Family history of malignant neoplasm of breast
CPT/HCPCS: 77067